=== PATIENT | female | born 1955 | race Caucasian/White ===

== ENCOUNTER 2017-02-14 14:59 | Emergency (ER) | payer MEDICARE, MEDICAID ==
[~2017-02-14] VITALS: Ht 154.9 cm; Wt 58.5 kg
[2017-02-14 15:46] VITALS: BP 144/73
[2017-02-14] MEDS ORDERED: FLUT9.9S NS (16:09)
--- NOTE | 2017-02-14 16:09 | PHYS DOC ---
Past Medical History Past Medical History: High Cholesterol, Other Additional Past Medical Histor: ENDOMETRIOSIS Past Surgical History: Appendectomy, Tonsillectomy, Other Additional Past Surgical Histo: ENDOMETRIOSIS SX x4 Alcohol Use: None Drug Use: None Adult General Chief Complaint Chief Complaint: Congestion HPI HPI Patient is a 61 year old female presents to the emergency department with a history of sinus congestion for the last 2 days. Patient states she has taken Tylenol PM without relief. She denies fever, chills, nausea or vomiting. She states she has had some SOA but nothing more than normal. Patient is concerned as about her symptoms as she is planing on flying to [place] tomorrow. Review of Systems Review of Systems Constitutional: Denies fever or chills [] Eyes: Denies change in visual acuity, redness, or eye pain [] HENT: nasal congestion denies sore throat [] Respiratory: Denies cough or shortness of breath [] Cardiovascular: No additional information not addressed in HPI [] GI: Denies abdominal pain, nausea, vomiting, bloody stools or diarrhea [] : Denies dysuria or hematuria [] Musculoskeletal: Denies back pain or joint pain [] Integument: Denies rash or skin lesions [] Neurologic: Denies headache, focal weakness or sensory changes [] Endocrine: Denies polyuria or polydipsia [] All other systems were reviewed and found to be within normal limits, except as documented in this note. Allergies Allergies Allergies Coded Allergies Type Severity Reaction Last Updated Verified morphine Adverse Reaction Mild VOMITING 02/14/17 Yes Physical Exam Physical Exam Constitutional: Well developed, well nourished, no acute distress, non-toxic appearance. [] HENT: Normocephalic, atraumatic, bilateral external ears normal, oropharynx moist, no oral exudates, nose normal. Bilateral TM normal, patient with frontal and maxillary sinus tenderness noted. Throat with erythema and post nasal drip, no exudate noted. Eyes: PERRLA, EOMI, conjunctiva normal, no discharge. [] Neck: Normal range of motion, no tenderness, supple, no stridor. [] Cardiovascular:Heart rate regular rhythm, no murmur [] Lungs & Thorax: Bilateral breath sounds clear to auscultation [] Skin: Warm, dry, no erythema, no rash. [] Extremities: No tenderness, no cyanosis, no clubbing, ROM intact, no edema. [] Neurologic: Alert and oriented X 3, normal motor function, normal sensory function, no focal deficits noted. [] Psychologic: Affect normal, judgement normal, mood normal. [] Current Patient Data Vital Signs Vital Signs Date Time Temp Pulse Resp B/P (MAP) Pulse Ox O2 Delivery O2 Flow Rate FiO2 02/14/17 15:46 98.6 91 20 97 Room Air 98.6 EKG EKG [] Radiology/Procedures Radiology/Procedures [] Course & Med Decision Making Course & Med Decision Making Pertinent Labs and Imaging studies reviewed. (See chart for details) Patient will be discharged home with recommendations for plenty of fluids. Recommended tylenol or Ibuprofen for fever, chills or generalized body aches. Mucinex DM for congestion and Sudafed to help with the pressure feeling. Recommended flonase. Patient will be discharged home in stable condition. Signs and symptoms to return to the emergency department have been provided. All questions and concerns have been answered at the bedside. Patient will be discharged home in stable condition. [] Dragon Disclaimer Dragon Disclaimer This electronic medical record was generated, in whole or in part, using a voice recognition dictation system. Departure Departure Impression: Primary Impression: URI (upper respiratory infection) Disposition: HOME, SELF-CARE Condition: STABLE Referrals: UNKNOWN PCP NAME (PCP) Patient Instructions: Upper Respiratory Infection, Adult, [id number] Additional Instructions: Activity as tolerated Medication as prescribed Mucinex DM as directed by manufacture Sudafed as directed by manufacture Drink plenty of fluids such as water, propel or gatorade Followup with primary care provider in 5-7 days Return to emergency department as needed for signs and symptoms that become worse. Scripts Fluticasone Propionate (Flonase Allergy Relief) 9.9 Ml [place].susp 2 SPRAYS NS DAILY, #1 BOTTLE Prov: VALERI RUIZ [employer] 02/14/17 Problem Qualifiers Primary Impression: URI (upper respiratory infection) URI type: unspecified URI Qualified Codes: J06.9 - Acute upper respiratory infection, unspecified VALERI RUIZ [employer] Feb 14, 2017 16:09
== END 2017-02-14 16:16 | disposition home or self-care (01) ==
LOC: ER 14:59
DX: J06.9 Acute upper respiratory infection, unspecified (principal); E78.00 Pure hypercholesterolemia, unspecified; Z88.5 Allergy status to narcotic agent
CPT/HCPCS: 99282

== ENCOUNTER 2017-08-29 02:40 | Emergency (ER) | payer OTHER, MEDICAID, MEDICARE ==
[2017-08-29 03:50] LABS: ADD MAN DIFF? NO
[2017-08-29 03:54] LABS: BASO # 0.1 x10^3/uL (0.0-0.2); BASO % 1 % (0-3); BILIRUBIN,URINE NEGATIVE (NEG); CLARITY,URINE CLEAR; COLOR,URINE YELLOW; EOS # 0.2 x10^3/uL (0.0-0.7); EOS % 2 % (0-3); GLUCOSE,URINE NEGATIVE (NEG); HEMATOCRIT 40.6 % (36.0-47.0); HEMOGLOBIN 13.7 g/dL (12.0-15.5); LYMPH # 3.5 x10^3/uL (1.0-4.8); LYMPH % 32 % (24-48); MEAN CORPUSCULAR HEMOGLOBIN 30 pg (25-35); MEAN CORPUSCULAR HGB CONC 34 g/dL (31-37); MEAN CORPUSCULAR VOLUME 89 fL (79-100); MONO # 0.8 x10^3/uL (0.0-1.1); MONO % 8 % (0-9); NEUT # 6.1 x10^3uL (1.8-7.7); NEUT % 57 % (31-73); NITRITE,URINE NEGATIVE (NEG); PH,URINE 6.5; PLATELET COUNT 297 x10^3/uL (140-400); PROTEIN,URINE NEGATIVE (NEG-TRACE); RED BLOOD COUNT 4.56 x10^6/uL (3.50-5.40); RED CELL DISTRIBUTION WIDTH 13.7 % (11.5-14.5); UROBILINOGEN,URINE 0.2 mg/dL (0.2 mg/dL); WHITE BLOOD COUNT 10.8 x10^3/uL (4.0-11.0)
[2017-08-29 04:00] LABS: ANION GAP 6 (6-14); BLOOD UREA NITROGEN 21 mg/dL (7-20); CALCIUM 8.8 mg/dL (8.5-10.1); CARBON DIOXIDE 27 mmol/L (21-32); CHLORIDE 103 mmol/L (98-107); CREATININE 0.8 mg/dL (0.6-1.0); GFR 72.7; GLUCOSE 95 mg/dL (70-99); POTASSIUM 3.8 mmol/L (3.5-5.1); SODIUM 136 mmol/L (136-145)
[2017-08-29 04:12] LABS: BACTERIA,URINE FEW /HPF (0-FEW); RBC,URINE 0 /HPF (0-2); SQUAMOUS EPITHELIAL CELL,UR MOD /LPF; WBC,URINE OCC /HPF (0-4)
[2017-08-29] MEDS: HYDROcodone/APAP 7.5/325MG 1 TAB TABLET PO (04:26)
[2017-08-29] MEDS: KETOROLAC 30 MG/ML INJ. IV (04:27)
[2017-08-29] MEDS: IPRATRPIUM/ALBUTEROL 0.5/2.5MG 3 ML NEBU. NEB (04:32)
== END 2017-08-29 05:35 | disposition home or self-care (01) ==
LOC: ER 02:40
DX: R07.81 Pleurodynia (principal); R07.89 Other chest pain; R05 Cough; R09.81 Nasal congestion; J02.9 Acute pharyngitis, unspecified; M54.6 Pain in thoracic spine; Z90.49 Acquired absence of other specified parts of digestive tract; Z88.5 Allergy status to narcotic agent
CPT/HCPCS: 36415; 71045; 80048; 81001; 85025; 94640; 96374; 99285-25; J1885; J7620

== ENCOUNTER → 2017-11-06 | Outpatient (CLI) | payer OTHER ==
[2017-08-29 04:59] VITALS: BP 153/74
[~2017-11-06] MED LIST: AZIT250T6 PO; CONTRAST GIVEN. MC PRN; FLUT9.9S NS; HYDR-971 PO; IOHEXOL 300 MG/ML 100ML VIAL. IV ONE; PRED50TA PO
--- NOTE | 2017-11-06 11:20 | RAD ---
CT of the chest with contrast, 11/06/2017: HISTORY: Pleuritic chest pain and shortness of breath Multidetector CT imaging was performed following an IV bolus injection of iodinated contrast material. There is opacification of multiple periscapular and chest wall collateral veins in the left upper chest. Opacified left subclavian vein is not visualized. The left innominate vein is widely patent. The findings suggest occlusion of the left subclavian vein medially. The thoracic aorta is of normal caliber. Several scattered coronary artery calcifications are noted. No mediastinal or hilar adenopathy is evident. There is mild bibasilar linear scarring and/or atelectasis, more so on the right. No pulmonary consolidation or mass is seen. There is no evidence of pleural fluid. Mild scattered degenerative changes are present in the spine. IMPRESSION: 1. Minimal coronary artery calcifications. 2. Mild bibasilar linear scarring and/or atelectasis. 3. 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 PQRS Compliance Statement: One or more of the following individualized dose reduction techniques were utilized for this examination: 1. Automated exposure control 2. Adjustment of the mA and/or kV according to patient size 3. Use of iterative reconstruction technique Electronically signed by: Robin Jolly MD (11/06/2017 11:17 AM) [facility]
== END | disposition home or self-care (01) ==
LOC: CT 09:31
PROVIDERS: ATTEND Family Medicine
DX: I25.10 Atherosclerotic heart disease of native coronary artery without angina pectoris (principal); E78.00 Pure hypercholesterolemia, unspecified; Z90.49 Acquired absence of other specified parts of digestive tract; Z88.5 Allergy status to narcotic agent
CPT/HCPCS: 71260; Q9967

== ENCOUNTER → 2018-03-26 | Day surgery (SDC) | payer OTHER ==
[~2018-03-26] MED LIST changes: +ACET325T9 PO; +ALBU2.5V8 NEB; +AMLO5TAB10 PO; +ATOR10TA60 PO; +BUDE10.2 IH; -CONTRAST GIVEN. MC PRN; +CYCL10TA2 PO; +DOXY100C2 PO; +ESCITALOPRAM OX10 MG PO; +FEXO180T16 PO; +FLUT16SP IH; +HYDR-2765 PO; +HYDR-3164 PO; -HYDR-971 PO; +HYDROmorphone 2 MG/ML VIAL IV PRN; -IOHEXOL 300 MG/ML 100ML VIAL. IV ONE; +IV RINGERS,LACTATED 1000ML 1,000 ML IV SCH; +LACT1CAP19 PO; +LIDOCAINE 1% PF 2 ML VIAL. ID PRN; +MELA3TAB2 PO; +MORPHINE SULFATE 4 MG/ML VIAL. IV PRN; +PRED20TA PO; +PROCHLORPERAZINE 10 MG/2 ML VIAL. IV PRN; +PROPOFOL 20 ML IV ONE; +fentaNYL PF VIAL 100 MCG/2 ML VIAL IV PRN
[2018-03-26 09:19] VITALS: BP 123/74
--- NOTE | 2018-03-27 17:11 | PATHOLOGY ---
[facility] Accession Number: [id number] . 01 Material submitted: . RANDOM COLON BIOPSY . 01 Clinical history: . Diarrhea, family HX CRC . 02 Diagnosis: Colonic mucosa, random colon biopsy: - No significant pathologic abnormalities. . (JPM:mm; 03/27/2018) [facility]/03/27/2018 . 02 Comment: Sections of the random colon biopsy reveal multiple segments of colonic mucosa containing several mucosal-associated lymphoid aggregates. There is no evidence of a chronic destructive colitis, lymphocytic colitis, or collagenous colitis. . (JPM:mml; 03/27/2018) . 02 Electronically signed: . Garfield Velasquez MD, Pathologist NPI- [id number] . 01 Gross description: . Received in formalin labeled "Osiris Javed, random colon BX, rule out microscopic colitis," are multiple segments of pathak soft tissue measuring 1.5 x 0.9 x 0.2 cm in aggregate dimensions. The specimen is filtered and entirely submitted in cassette A1. (TSD; 03/26/2018) TOB/TOB . 02 Pathologist provided ICD-10: R19.7 . 02 CPT . 323923 Specimen Comment: A courtesy copy of this report has been sent to Specimen Comment: [phone], . Specimen Comment: Report sent to / DR KRISHNA Specimen Comment: A duplicate report has been generated due to demographic updates. Performed at: 01 [facility] [address], [place] [id number] MD Souleymane Tamayo MD Phone: [phone] Performed at: 02 [facility] [address], [place] [id number] MD Garfield Velasquez MD Phone: [phone]
== END | disposition home or self-care (01) ==
LOC: ENDOS 07:24
PROVIDERS: ATTEND Internal Medicine Gastroenterology
DX: K64.0 First degree hemorrhoids (principal); K52.9 Noninfective gastroenteritis and colitis, unspecified; E78.00 Pure hypercholesterolemia, unspecified; Z88.5 Allergy status to narcotic agent; M19.90 Unspecified osteoarthritis, unspecified site; Z82.49 Family history of ischemic heart disease and other diseases of the circulatory system; Z79.82 Long term (current) use of aspirin; Z79.899 Other long term (current) drug therapy; Z90.49 Acquired absence of other specified parts of digestive tract; Z90.710 Acquired absence of both cervix and uterus; Z98.890 Other specified postprocedural states
CPT/HCPCS: 45380; 88305; J2704

== ENCOUNTER 2018-05-21 15:08 | Inpatient (IN) | payer OTHER ==
[~2018-05-21] VITALS: Ht 154.9 cm; Wt 61.4 kg
[~2018-05-21 15:08] MED LIST changes: -ALBU2.5V8 NEB; -AMLO5TAB10 PO; -BUDE10.2 IH; -CYCL10TA2 PO; -DOXY100C2 PO; -FEXO180T16 PO; -FLUT16SP IH; -HYDR-2765 PO; -HYDROmorphone 2 MG/ML VIAL IV PRN; -IV RINGERS,LACTATED 1000ML 1,000 ML IV SCH; -LACT1CAP19 PO; -LIDOCAINE 1% PF 2 ML VIAL. ID PRN; -MORPHINE SULFATE 4 MG/ML VIAL. IV PRN; -PRED20TA PO; -PROCHLORPERAZINE 10 MG/2 ML VIAL. IV PRN; -PROPOFOL 20 ML IV ONE; -fentaNYL PF VIAL 100 MCG/2 ML VIAL IV PRN
--- NOTE | 2018-05-21 15:51 | PHYS DOC ---
Past Medical History Past Medical History: Arthritis, Endometriosis Additional Past Medical Histor: ENDOMETRIOSIS Past Surgical History: Appendectomy, Tonsillectomy Additional Past Surgical Histo: ENDOMETRIOSIS SX x4 Alcohol Use: None Drug Use: None Adult General Chief Complaint Chief Complaint: SHORTNESS OF BREATH HPI HPI Patient is a 62 year old female who presents with chest pain that is sharp and shooting across her chest bilaterally, mid back pain that is sharp and shooting across her back bilaterally, left shoulder pain that is sharp or though patient states that she does have 50% torn rotator cuff and that shoulder, and shortness of air that all started on Saturday. The patient states that now worse. Patient states that she saw Dr. Knox earlier this week and is having abdominal pain in the right upper quadrant. Patient states she just had a colonoscopy because she's been having diarrhea since and that was normal. Patient denies nausea, vomiting, fever, cough, recent illness. Review of Systems Review of Systems Constitutional: Denies fever or chills [] Eyes: Denies change in visual acuity, redness, or eye pain [] HENT: Denies nasal congestion or sore throat [] Respiratory: Denies cough. + shortness of breath [] Cardiovascular: Left and right shooting pain GI: abdominal pain, denies nausea, vomiting, bloody stools. + Neck diarrhea [] : Urinary frequency Denies dysuria or hematuria [] Musculoskeletal: Bilateral mid back pain or joint pain [] Integument: Denies rash or skin lesions [] Neurologic: Denies headache, focal weakness or sensory changes [] Endocrine: Denies polyuria or polydipsia [] All other systems were reviewed and found to be within normal limits, except as documented in this note. Current Medications Current Medications Current Medications Medications (Trade) Dose Ordered Sig/Jonatan Start Time Stop Time Status Last Admin Dose Admin Acetaminophen (Tylenol) 650 mg PRN Q4HRS PRN 05/21/18 18:15 05/22/18 18:14 Aspirin (Children'S Aspirin) 324 mg 1X ONCE 05/21/18 16:00 05/21/18 16:01 DC 05/21/18 16:17 324 MG Fentanyl Citrate (Fentanyl 2ml Vial) 50 mcg PRN Q1HR PRN 05/21/18 18:15 05/22/18 18:14 Info (CONTRAST GIVEN -- Rx MONITORING) 1 each PRN DAILY PRN 05/21/18 16:45 05/23/18 16:44 Iohexol (Omnipaque 300 Mg/ml) 75 ml 1X ONCE 05/21/18 16:30 05/21/18 16:31 DC 05/21/18 16:48 75 ML Multi-Ingredient Mouthwash/Gargle (Gi Cocktail) 20 ml 1X ONCE 05/21/18 18:15 05/21/18 18:17 DC Nitroglycerin (Nitrostat) 0.4 mg PRN Q5MIN PRN 05/21/18 18:15 05/22/18 18:14 Ondansetron HCl (Zofran) 4 mg PRN Q8HRS PRN 05/21/18 18:15 05/22/18 18:14 Sodium Chloride 1,000 ml @ 1,000 mls/hr Q1H 05/21/18 15:52 05/21/18 16:51 DC 05/21/18 16:21 1,000 MLS/HR Allergies Allergies Allergies Coded Allergies Type Severity Reaction Last Updated Verified morphine Adverse Reaction Mild VOMITING 03/26/18 Yes Physical Exam Physical Exam Constitutional: Well developed, well nourished, no acute distress, non-toxic appearance. [] HENT: Normocephalic, atraumatic, bilateral external ears normal, oropharynx moist, no oral exudates, nose normal. [] Eyes: PERRLA, EOMI, conjunctiva normal, no discharge. [] Neck: Normal range of motion, no tenderness, supple, no stridor. [] Cardiovascular:Heart rate regular rhythm, no murmur [] Lungs & Thorax: Bilateral upper breath sounds clear to auscultation and lower bilateral breath sounds are diminished.[] Abdomen: Bowel sounds normal, soft, Upper right, epigastric, upper left tenderness, no masses, no pulsatile masses. [] Skin: Warm, dry, no erythema, no rash. [] Back: No tenderness, no CVA tenderness. [] Extremities: No tenderness, no cyanosis, no clubbing, ROM intact, no edema. [] Neurologic: Alert and oriented X 3, normal motor function, normal sensory function, no focal deficits noted. [] Psychologic: Affect normal, judgement normal, mood normal. [] Current Patient Data Vital Signs Vital Signs Date Time Temp Pulse Resp B/P (MAP) Pulse Ox O2 Delivery O2 Flow Rate FiO2 05/21/18 18:46 18 96 Room Air 05/21/18 15:20 98.3 90 142/83 (102) 98.3 Lab Values Laboratory Tests Test 05/21/18 15:20 05/21/18 16:05 Urine Collection Type Unknown Urine Color Yellow Urine Clarity Clear Urine pH 5.5 Urine Specific [place] 1.010 Urine Protein Negative mg/dL (NEG-TRACE) Urine Glucose (UA) Negative mg/dL (NEG) Urine Ketones (Stick) Negative mg/dL (NEG) Urine Blood Negative (NEG) Urine Nitrite Negative (NEG) Urine Bilirubin Negative (NEG) Urine Urobilinogen Dipstick 0.2 mg/dL (0.2 mg/dL) Urine Leukocyte Esterase Negative (NEG) Urine RBC 0 /HPF (0-2) Urine WBC Rare /HPF (0-4) Urine Squamous Epithelial Cells Few /LPF Urine Bacteria Few /HPF (0-FEW) Urine Opiates Screen Neg (NEG) Urine Methadone Screen Neg (NEG) Urine Barbiturates Neg (NEG) Urine Phencyclidine Screen Neg (NEG) Urine Amphetamine/Methamphetamine Neg (NEG) Urine Benzodiazepines Screen Neg (NEG) Urine Cocaine Screen Neg (NEG) Urine Cannabinoids Screen Pos (NEG) Urine Ethyl Alcohol Neg (NEG) White Blood Count 13.0 x10^3/uL (4.0-11.0) H Red Blood Count 4.34 x10^6/uL (3.50-5.40) Hemoglobin 12.8 g/dL (12.0-15.5) Hematocrit 39.5 % (36.0-47.0) Mean Corpuscular Volume 91 fL (79-100) Mean Corpuscular Hemoglobin 29 pg (25-35) Mean Corpuscular Hemoglobin Concent 32 g/dL (31-37) Red Cell Distribution Width 13.6 % (11.5-14.5) Platelet Count 300 x10^3/uL (140-400) Neutrophils (%) (Auto) 71 % (31-73) Lymphocytes (%) (Auto) 17 % (24-48) L Monocytes (%) (Auto) 10 % (0-9) H Eosinophils (%) (Auto) 1 % (0-3) Basophils (%) (Auto) 1 % (0-3) Neutrophils # (Auto) 9.2 x10^3uL (1.8-7.7) H Lymphocytes # (Auto) 2.2 x10^3/uL (1.0-4.8) Monocytes # (Auto) 1.3 x10^3/uL (0.0-1.1) H Eosinophils # (Auto) 0.1 x10^3/uL (0.0-0.7) Basophils # (Auto) 0.1 x10^3/uL (0.0-0.2) D-Dimer (Ruth) 0.52 ug/mlFEU (0.00-0.50) H Sodium Level 137 mmol/L (136-145) Potassium Level 3.9 mmol/L (3.5-5.1) Chloride Level 101 mmol/L (98-107) Carbon Dioxide Level 28 mmol/L (21-32) Anion Gap 8 (6-14) Blood Urea Nitrogen 15 mg/dL (7-20) Creatinine 0.7 mg/dL (0.6-1.0) Estimated GFR (Cockcroft-Gault) 84.5 BUN/Creatinine Ratio 21 (6-20) H Glucose Level 99 mg/dL (70-99) Calcium Level 8.9 mg/dL (8.5-10.1) Total Bilirubin 0.4 mg/dL (0.2-1.0) Aspartate Amino Transferase (AST) 21 U/L (15-37) Alanine Aminotransferase (ALT) 31 U/L (14-59) Alkaline Phosphatase 83 U/L (46-116) Troponin I Quantitative < 0.017 ng/mL (0.000-0.055) Total Protein 7.4 g/dL (6.4-8.2) Albumin 3.5 g/dL (3.4-5.0) Albumin/Globulin Ratio 0.9 (1.0-1.7) L Lipase 222 U/L (73-393) Laboratory Tests 05/21/18 16:05 Laboratory Tests 05/21/18 16:05 EKG EKG Sinus Rhythm and no STEMI Interpretation Time: [address] Cr Radiology/Procedures Radiology/Procedures [] Impressions: [facility] [address] [place], [place] [id number] IMAGING REPORT Signed PATIENT: JULIA MRAR ACCOUNT: [id number] : 1955 LOCATION: ER AGE: 62 SEX: F EXAM STATUS: REG ER ORD. PHYSICIAN: VALERI DILL APRN REASON: chest pain PROCEDURE: CHEST PA & LATERAL CHEST PA LATERAL History: ER PATIENT. ATRAUMATIC CHEST PAIN X3 DAYS. WORSENING TODAY. PAIN UPON INSPIRATION. Hx COPD. Comparison: AP chest August 29, 2017. Findings: The cardiomediastinal silhouette is normal. Pulmonary vasculature is normal. Minimal discoid atelectasis in the bilateral lung bases. The lungs are otherwise clear. No pleural effusion or pneumothorax is seen. There is no acute bone abnormality. IMPRESSION: No acute cardiopulmonary process. Electronically signed by: Hudson Leonardo MD (05/21/2018 4:28 PM) [id number] DICTATED and SIGNED BY: HUDSON LEONARDO MD DATE: 05/21/18 1628 [facility] [address] [place] [address] IMAGING REPORT Signed PATIENT: JULIA MARR ACCOUNT: [id number] : 1955 LOCATION: ER AGE: 62 SEX: F EXAM STATUS: REG ER ORD. PHYSICIAN: VALERI DILL APRN REASON: RUQ Pain, DIARRHEA PROCEDURE: CT ABD PELV W/ IV CONTRST ONLY EXAM: CT Abdomen and Pelvis with IV contrast CLINICAL HISTORY: Right upper quadrant pain, back pain, diarrhea COMPARISON: none TECHNIQUE: Helical CT of the abdomen and pelvis was performed following the administration of intravenous contrast. Axial, coronal and sagittal reformatted images were generated. PQRS compliance statement - One or more of the following individualized dose reduction techniques were utilized for this study: 1. Automated exposure control 2. Adjustment of the mA and/or kV according to patient size 3. Use of iterative reconstruction technique FINDINGS: Lower chest: Linear opacities in the lower lobes likely scarring/atelectasis. Abdomen and Pelvis: No focal liver lesion. Gallbladder is normal. No biliary ductal dilatation. Spleen is unremarkable. Adrenal glands are normal. Pancreas is unremarkable. Symmetric nephrograms. No focal renal lesion. No hydronephrosis. Moderate colonic stool content is seen throughout the colon. The appendix is not definitively seen. No small or large bowel dilatation to suggest bowel obstruction. Anastomotic suture line is seen in the right lower quadrant. Mild thickening of the bladder wall. Aorta is normal in caliber with atherosclerotic calcifications. No abdominal or pelvic ascites. No abdominal pelvic lymphadenopathy. Bones: Multilevel degenerative changes of the spine are seen. Bilateral L5 pars defects are seen. No spondylolisthesis. Decreased bone mineral density. IMPRESSION: 1. No evidence for acute cholecystitis. 2. Pancreas is normal without evidence for acute pancreatitis. 3. Moderate colonic stool content is seen. No bowel obstruction. 4. Mild bladder wall thickening, nonspecific possibly cystitis or physiologic for this patient. Electronically signed by: Prateek Sanches MD (05/21/2018 5:17 PM) [facility] DICTATED and SIGNED BY: PRATEEK SANCHES MD DATE: 05/21/18 687 Course & Med Decision Making Course & Med Decision Making Patient is a 62 year old female who presents with chest pain that is sharp and shooting across her chest bilaterally, mid back pain that is sharp and shooting across her back bilaterally, left shoulder pain that is sharp or though patient states that she does have 50% torn rotator cuff and that shoulder, and shortness of air that all started on Saturday. The patient states that now worse. Patient states that she saw Dr. Knox earlier this week and is having abdominal pain in the right upper quadrant. Patient states she just had a colonoscopy because she's been having diarrhea since and that was normal. Patient denies nausea, vomiting, fever, cough, recent illness. No extremity swelling. Speaks in full clear sentences. PERRLA. Neurologically intact. Upper Right, epigastric, left abdomen upper abdomen tenderness to palpation. Patient states that on Saturday she began also having urinary frequency but no burning with urination and no blood in her urine. Patient denies any blood in her stool. Abdomen is soft and there are no masses felt. Vital signs are within normal limits she is afebrile. Alert and oriented. Skin is pink warm and dry. Mucous membranes are moist. EKG shows sinus rhythm and no STEMI. No CVA tenderness. X-ray shows no acute findings. Urinalysis shows no infection. Blood work is unremarkable. Her lipase is 222 which is the upper limit of normal. Heart score 3. CT ABD PELV shows 1. No evidence for acute cholecystitis. 2. Pancreas is normal without evidence for acute pancreatitis. 3. Moderate colonic stool content is seen. No bowel obstruction. 4. Mild bladder wall thickening, nonspecific possibly cystitis or physiologic for this patient. After have given Fentanyl patient states she is still feeling chest pain and states she just feels like she can't get a deep breath. I added on a d-dimer and ordered another dose of fentanyl. 1810: I have spoken to Dr. Ennis for admission. He states also try giving the patient a GI cocktail. Patient be admitted the hospital for chest pain and I will consult cardiology. 1999: ddimer elevated. I have ordered a CT Angio Chest Dragon Disclaimer Dragon Disclaimer This electronic medical record was generated, in whole or in part, using a voice recognition dictation system. Departure Departure Impression: Primary Impression: Chest pain Disposition: ADMITTED INPATIENT Admitting Physician: Cm Ennis Condition: STABLE Referrals: JARRELL KRISHNA MD (PCP) Problem Qualifiers Primary Impression: Chest pain Chest pain type: unspecified Qualified Codes: R07.9 - Chest pain, unspecified VALERI DILL MEDICAL TECHNOLOGIST GENERALIST May 21, 2018 15:51
[2018-05-21] MEDS ORDERED: IV NORMAL SALINE 1000ML BAG 1,000 ML IV SCH (15:52)
[2018-05-21] MEDS ORDERED: ONDANSETRON PF 4 MG/2 ML VIAL. IV ONE (16:00)
[2018-05-21] MEDS ORDERED: ASPIRIN CHEWABLE 81 MG TABLET. PO ONE (16:00)
[2018-05-21] MEDS ORDERED: fentaNYL PF VIAL 100 MCG/2 ML VIAL IV ONE ×2 (16:00→18:15)
--- NOTE | 2018-05-21 16:04 | EKG ---
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
[2018-05-21 16:14] LABS: BASO # 0.1 x10^3/uL (0.0-0.2); BASO % 1 % (0-3); EOS # 0.1 x10^3/uL (0.0-0.7); EOS % 1 % (0-3); HEMATOCRIT 39.5 % (36.0-47.0); HEMOGLOBIN 12.8 g/dL (12.0-15.5); LYMPH # 2.2 x10^3/uL (1.0-4.8); LYMPH % 17 % (24-48); MEAN CORPUSCULAR HEMOGLOBIN 29 pg (25-35); MEAN CORPUSCULAR HGB CONC 32 g/dL (31-37); MEAN CORPUSCULAR VOLUME 91 fL (79-100); MONO # 1.3 x10^3/uL (0.0-1.1); MONO % 10 % (0-9); NEUT # 9.2 x10^3uL (1.8-7.7); NEUT % 71 % (31-73); PLATELET COUNT 300 x10^3/uL (140-400); RED BLOOD COUNT 4.34 x10^6/uL (3.50-5.40); RED CELL DISTRIBUTION WIDTH 13.6 % (11.5-14.5)
[2018-05-21 16:16] LABS: BILIRUBIN,URINE NEGATIVE (NEG); CLARITY,URINE CLEAR; COLOR,URINE YELLOW; NITRITE,URINE NEGATIVE (NEG); PH,URINE 5.5; PROTEIN,URINE NEGATIVE (NEG-TRACE); UROBILINOGEN,URINE 0.2 mg/dL (0.2 mg/dL)
[2018-05-21 16:23] LABS: CALCIUM 8.9 mg/dL (8.5-10.1); CREATININE 0.7 mg/dL (0.6-1.0); GFR 84.5; POTASSIUM 3.9 mmol/L (3.5-5.1)
[2018-05-21 16:26] LABS: AMPHETAMINE/METHAMPHETAMINE NEG (NEG); BARBITURATES NEG (NEG); BENZODIAZEPINES NEG (NEG); CANNABINOIDS POS (NEG); COCAINE NEG (NEG); METHADONE NEG (NEG); OPIATES NEG (NEG); PHENCYCLIDINE NEG (NEG)
[2018-05-21 16:29] LABS: ALBUMIN 3.5 g/dL (3.4-5.0); ALBUMIN/GLOBULIN RATIO 0.9 (1.0-1.7); TOTAL BILIRUBIN 0.4 mg/dL (0.2-1.0); TOTAL PROTEIN 7.4 g/dL (6.4-8.2)
[2018-05-21] MEDS ORDERED: IOHEXOL 300 MG/ML 100ML VIAL. IV ONE (16:30)
--- NOTE | 2018-05-21 16:31 | RAD ---
CHEST PA LATERAL History: ER PATIENT. ATRAUMATIC CHEST PAIN X3 DAYS. WORSENING TODAY. PAIN UPON INSPIRATION. Hx COPD. Comparison: AP chest August 29, 2017. Findings: The cardiomediastinal silhouette is normal. Pulmonary vasculature is normal. Minimal discoid atelectasis in the bilateral lung bases. The lungs are otherwise clear. No pleural effusion or pneumothorax is seen. There is no acute bone abnormality. IMPRESSION: No acute cardiopulmonary process. Electronically signed by: Hudson Leonardo MD (05/21/2018 4:28 PM) [id number]
[2018-05-21 16:32] LABS: BACTERIA,URINE FEW /HPF (0-FEW); RBC,URINE 0 /HPF (0-2); SQUAMOUS EPITHELIAL CELL,UR FEW /LPF; WBC,URINE RARE /HPF (0-4)
[2018-05-21] MEDS ORDERED: CONTRAST GIVEN. MC PRN (16:45)
--- NOTE | 2018-05-21 17:20 | RAD ---
EXAM: CT Abdomen and Pelvis with IV contrast CLINICAL HISTORY: Right upper quadrant pain, back pain, diarrhea COMPARISON: none TECHNIQUE: Helical CT of the abdomen and pelvis was performed following the administration of intravenous contrast. Axial, coronal and sagittal reformatted images were generated. PQRS compliance statement - One or more of the following individualized dose reduction techniques were utilized for this study: 1. Automated exposure control 2. Adjustment of the mA and/or kV according to patient size 3. Use of iterative reconstruction technique FINDINGS: Lower chest: Linear opacities in the lower lobes likely scarring/atelectasis. Abdomen and Pelvis: No focal liver lesion. Gallbladder is normal. No biliary ductal dilatation. Spleen is unremarkable. Adrenal glands are normal. Pancreas is unremarkable. Symmetric nephrograms. No focal renal lesion. No hydronephrosis. Moderate colonic stool content is seen throughout the colon. The appendix is not definitively seen. No small or large bowel dilatation to suggest bowel obstruction. Anastomotic suture line is seen in the right lower quadrant. Mild thickening of the bladder wall. Aorta is normal in caliber with atherosclerotic calcifications. No abdominal or pelvic ascites. No abdominal pelvic lymphadenopathy. Bones: Multilevel degenerative changes of the spine are seen. Bilateral L5 pars defects are seen. No spondylolisthesis. Decreased bone mineral density. IMPRESSION: 1. No evidence for acute cholecystitis. 2. Pancreas is normal without evidence for acute pancreatitis. 3. Moderate colonic stool content is seen. No bowel obstruction. 4. Mild bladder wall thickening, nonspecific possibly cystitis or physiologic for this patient. Electronically signed by: Prateek Downing MD (05/21/2018 5:17 PM) [facility]
[2018-05-21] MEDS ORDERED: LIDO:MAALOX 1:1 20 ML SINGLE DOSE. SWSW ONE (18:15)
[2018-05-21] MEDS ORDERED: ACETAMINOPHEN 325 MG TABLET. PO PRN (18:15)
[2018-05-21] MEDS ORDERED: ONDANSETRON PF 4 MG/2 ML VIAL. IV PRN (18:15)
[2018-05-21] MEDS ORDERED: NITROGLYCERIN SUBLINGUAL 0.4 MG BOTTLE OF 25. SL PRN (18:15)
[2018-05-21 23:00] VITALS: BP 148/84
[2018-05-21] MEDS: fentaNYL PF VIAL 100 MCG/2 ML VIAL IV PRN (23:12)
--- NOTE | 2018-05-21 23:34 | RAD ---
Lung scan 05/21/2018 CLINICAL HISTORY: Elevated d-dimer. TECHNIQUE: After the administration of 18 mCi of xenon-133 gas, ventilation images of both lungs were obtained using the gamma camera. After the intravenous administration of 5.5 mCi of Technetium 99m MAA, perfusion images of both lungs were obtained using the gamma camera. FINDINGS: Comparison is made to PA and lateral chest radiographs performed earlier today. These demonstrate no acute pulmonary infiltrate. Slightly heterogeneous ventilation and perfusion of both lungs is seen. No unmatched perfusion defect is noted. These findings are consistent with a low probability study for pulmonary embolism. IMPRESSION: Low probability study. Electronically signed by: Jose Baez MD (05/21/2018 11:31 PM) [facility]
[2018-05-21] MEDS ORDERED: FLUT16SP IH (23:44)
[2018-05-21] MEDS ORDERED: BUDE10.2 IH (23:44)
[2018-05-21] MEDS ORDERED: FEXO180T16 PO (23:44)
[2018-05-22] MEDS: fentaNYL PF VIAL 100 MCG/2 ML VIAL IV PRN ×4 (02:03→10:59)
--- NOTE | 2018-05-22 02:04 | NUR ---
Patient arrived on unit at 2300. VS obtained and stable, assessment completed. Patient oriented to surroundings, call light within reach. Will resume care and continue to monitor patient.
[2018-05-22 02:55] VITALS: BP 159/87
[2018-05-22 07:37] VITALS: BP 140/79
[2018-05-22] MEDS ORDERED: ALBUTEROL SULFATE 2.5 MG/3 ML NEBU. NEB SCH (08:00)
[2018-05-22] MEDS ORDERED: ALBUTEROL SULFATE 2.5 MG/3 ML NEBU. NEB PRN (08:00)
[2018-05-22] MEDS ORDERED: NON FORMULARY ITEM (Budesonide/Formoterol Fumarate (Symbicort 160-4.5 Mcg Inhaler) 10.2 GM IH SCH (09:00)
--- NOTE | 2018-05-22 10:05 | PDOC2 ---
DL RENTERIA CLIENT RELATIONSHIP CONSULTANT 05/22/18 1005: CARDIAC CONSULT DATE OF CONSULT Date of Consult DATE: 05/22/18 TIME: 09:31 REASON FOR CONSULT Reason for Consult: Chest pain REFERRING PHYSICIAN Referring Physician: Jacky SOURCE Source: Chart review, Patient HISTORY OF PRESENT ILLNESS HISTORY OF PRESENT ILLNESS This is a 62 yo female admitted for complains of chest pain and abdominal pain. Reports that she has chronic cough and has COPD. Has been fever inpt but none at home. She has "50%" torn right RTC which currently ROM is limited and also could not take a deep breath due to the pain to his anterior chest which radiates to lower rib cage. in the back. She also has epigastric to RUQ pain both of these region including chest are sharp in consistency and reproducible with palpation. Her chest pain is more to right and also duplicated with positional changes. No recent moving of furnitures, heavy lifting. No falls or any recent injury. She has had stress test last yr in [place] before moving to and it was normal accdg to her. Denies any past CAD, VTE, arrhythmia. She alos has hx of reflex sympathetic dystrophy. No nausea, vomiting diarrhea, nasal congestion, palpitations. No SOA nor RILEY or exertional CP prior to this starting last Saturday. No paresthesia to UE. PAST MEDICAL HISTORY Cardiovascular: Hyperlipidemia Pulmonary: COPD CENTRAL NERVOUS SYSTEM: Other (Reflex sympathetic dystrophy) Heme/Onc: No pertinent hx Hepatobiliary: No pertinent hx Psych: Depression Musculoskeletal: Osteoarthritis Rheumatologic: No pertinent hx Infectious disease: No pertinent hx ENT: Allergic Rhinitis Renal/: No pertinent hx Endocrine: No pertinent hx Dermatology: No pertinent hx PAST SURGICAL HISTORY Past Surgical History: Appendectomy, Tonsillectomy, Hysterectomy (with BSO) FAMILY HISTORY Family History: Coronary Artery Disease (father) SOCIAL HISTORY Smoke: Quit ALCOHOL: none Drugs: Marijuana (CBD) Lives: with Family CURRENT MEDICATIONS CURRENT MEDICATIONS Current Medications Medications (Trade) Dose Ordered Sig/Jonatan Route PRN Reason Start Time Stop Time Status Last Admin Dose Admin Aspirin (Children'S Aspirin) 324 mg 1X ONCE PO 05/21/18 16:00 05/21/18 16:01 DC 05/21/18 16:17 Sodium Chloride 1,000 ml @ 1,000 mls/hr Q1H IV 05/21/18 15:52 05/21/18 16:51 DC 05/21/18 16:21 Ondansetron HCl (Zofran) 4 mg 1X ONCE IV 05/21/18 16:00 05/21/18 16:01 DC 05/21/18 16:18 Fentanyl Citrate (Fentanyl 2ml Vial) 50 mcg 1X ONCE IV 05/21/18 16:00 05/21/18 16:01 DC 05/21/18 16:20 Iohexol (Omnipaque 300 Mg/ml) 75 ml 1X ONCE IV 05/21/18 16:30 05/21/18 16:31 DC 05/21/18 16:48 Fentanyl Citrate (Fentanyl 2ml Vial) 50 mcg 1X ONCE IV 05/21/18 18:15 05/21/18 18:16 DC 05/21/18 18:46 Multi-Ingredient Mouthwash/Gargle (Gi Cocktail) 20 ml 1X ONCE SWSW 05/21/18 18:15 05/21/18 18:17 DC 05/21/18 21:20 Ondansetron HCl (Zofran) 4 mg PRN Q8HRS PRN IV NAUSEA/VOMITING 05/21/18 18:15 05/22/18 18:14 05/22/18 05:15 Fentanyl Citrate (Fentanyl 2ml Vial) 50 mcg PRN Q1HR PRN IV PAIN 05/21/18 18:15 05/22/18 18:14 05/22/18 08:15 ALLERGIES ALLERGIES: Coded Allergies: morphine (Verified Adverse Reaction, Mild, VOMITING, 03/26/18) ROS Review of System 14 point ROS evaluated with pertinent positives noted per HPI PHYSICAL EXAM General: Alert, Oriented X3, Cooperative, No acute distress HEENT: Atraumatic, Mucous membr. moist/pink Lungs: Clear to auscultation, Normal air movement Heart: Regular rate (SR/ST), Normal S1, Normal S2, Other (2/6 systolic murmur to LLS border) Abdomen: Soft, Other (epigastric and RUQ tenderness with palpation) Extremities: No cyanosis, No edema Skin: No breakdown, No significant lesion Neuro: Normal speech, Sensation intact Psych/Mental Status: Mental status NL, Mood NL MUSCULOSKELETAL: Osteoarthritic changes both hands VITALS VITALS Vital Signs Date Time Temp Pulse Resp B/P (MAP) Pulse Ox O2 Delivery O2 Flow Rate FiO2 05/22/18 08:15 93 Room Air 05/22/18 07:37 99.9 103 17 140/79 (99) 99.9 LABS Lab: Laboratory Tests Test 05/21/18 15:20 05/21/18 16:05 05/21/18 21:05 Urine Collection Type Unknown Urine Color Yellow Urine Clarity Clear Urine pH 5.5 Urine Specific Patton 1.010 Urine Protein Negative mg/dL (NEG-TRACE) Urine Glucose (UA) Negative mg/dL (NEG) Urine Ketones (Stick) Negative mg/dL (NEG) Urine Blood Negative (NEG) Urine Nitrite Negative (NEG) Urine Bilirubin Negative (NEG) Urine Urobilinogen Dipstick 0.2 mg/dL (0.2 mg/dL) Urine Leukocyte Esterase Negative (NEG) Urine RBC 0 /HPF (0-2) Urine WBC Rare /HPF (0-4) Urine Squamous Epithelial Cells Few /LPF Urine Bacteria Few /HPF (0-FEW) Urine Opiates Screen Neg (NEG) Urine Methadone Screen Neg (NEG) Urine Barbiturates Neg (NEG) Urine Phencyclidine Screen Neg (NEG) Urine Amphetamine/Methamphetamine Neg (NEG) Urine Benzodiazepines Screen Neg (NEG) Urine Cocaine Screen Neg (NEG) Urine Cannabinoids Screen Pos (NEG) Urine Ethyl Alcohol Neg (NEG) White Blood Count 13.0 x10^3/uL (4.0-11.0) Red Blood Count 4.34 x10^6/uL (3.50-5.40) Hemoglobin 12.8 g/dL (12.0-15.5) Hematocrit 39.5 % (36.0-47.0) Mean Corpuscular Volume 91 fL (79-100) Mean Corpuscular Hemoglobin 29 pg (25-35) Mean Corpuscular Hemoglobin Concent 32 g/dL (31-37) Red Cell Distribution Width 13.6 % (11.5-14.5) Platelet Count 300 x10^3/uL (140-400) Neutrophils (%) (Auto) 71 % (31-73) Lymphocytes (%) (Auto) 17 % (24-48) Monocytes (%) (Auto) 10 % (0-9) Eosinophils (%) (Auto) 1 % (0-3) Basophils (%) (Auto) 1 % (0-3) Neutrophils # (Auto) 9.2 x10^3uL (1.8-7.7) Lymphocytes # (Auto) 2.2 x10^3/uL (1.0-4.8) Monocytes # (Auto) 1.3 x10^3/uL (0.0-1.1) Eosinophils # (Auto) 0.1 x10^3/uL (0.0-0.7) Basophils # (Auto) 0.1 x10^3/uL (0.0-0.2) D-Dimer (Ruth) 0.52 ug/mlFEU (0.00-0.50) Sodium Level 137 mmol/L (136-145) Potassium Level 3.9 mmol/L (3.5-5.1) Chloride Level 101 mmol/L (98-107) Carbon Dioxide Level 28 mmol/L (21-32) Anion Gap 8 (6-14) Blood Urea Nitrogen 15 mg/dL (7-20) Creatinine 0.7 mg/dL (0.6-1.0) Estimated GFR (Cockcroft-Gault) 84.5 BUN/Creatinine Ratio 21 (6-20) Glucose Level 99 mg/dL (70-99) Calcium Level 8.9 mg/dL (8.5-10.1) Total Bilirubin 0.4 mg/dL (0.2-1.0) Aspartate Amino Transf (AST/SGOT) 21 U/L (15-37) Alanine Aminotransferase (ALT/SGPT) 31 U/L (14-59) Alkaline Phosphatase 83 U/L (46-116) Troponin I Quantitative < 0.017 ng/mL (0.000-0.055) < 0.017 ng/mL (0.000-0.055) Total Protein 7.4 g/dL (6.4-8.2) Albumin 3.5 g/dL (3.4-5.0) Albumin/Globulin Ratio 0.9 (1.0-1.7) Lipase 222 U/L (73-393) IMAGES IMAGES IMPRESSION: 1. Minimal coronary artery calcifications. 2. Mild bibasilar linear scarring and/or atelectasis. 3. 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 PQRS Compliance Statement: One or more of the following individualized dose reduction techniques were utilized for this examination: 1. Automated exposure control 2. Adjustment of the mA and/or kV according to patient size 3. Use of iterative reconstruction technique DATE: 11/06/17 1106 ASSESSMENT/PLAN ASSESSMENT/PLAN 1. Atypical chest pain: noncardiac. MSK 2. Abdominal pain: CT inconclusiveso far except for below 3. Fever with cystitis? 4. COPD/cough 5. HLP 6. Known right RTC tear and reflex sympathetic dystrophy: uses CBD for pain 7. Reactive sinus tach Recommendations 1. CT chest no contrast and note any occult/shoulder-rib fractures and any thoracic compression 2. Rapid flu test 3. TSH, lipids, TTE 4. Past CT revealed coronary calcifications, reported nml stress test a yr ago from [place]. Supportive care at this time. Continue statin 5. Start on ECASA 81 mg if there is no suspicion of PUD. CONCEPCION ALCANTARA MD 05/22/188: CARDIAC CONSULT ASSESSMENT/PLAN ASSESSMENT/PLAN Patient seen and examined. Agree with ECONOMIC RESEARCH ANALYST's assessment and plan. CP with atypical features and most probably musculoskeletal [place] ruled out 2D echo showed normal LV function without any WMA Stress test one year ago apparently normal No further cardiac workup is indicated at this time Thank you for your consultation DL RENTERIA APRN May 22, 2018 10:05 CONCEPCION ALCANTARA MD May 22, 2018 21:08
[2018-05-22] MEDS: CETIRIZINE HCL 10 MG TABLET. PO SCH (10:15)
[2018-05-22] MEDS: FLUTICASONE 50MCG/NASAL SPRAY 16GM BOTTLE. NS SCH (10:15)
[2018-05-22] MEDS: CITALOPRAM 20 MG TABLET. PO SCH (10:16)
[2018-05-22 10:49] VITALS: BP 184/96
[2018-05-22] MEDS: ALBUTEROL SULFATE 2.5 MG/3 ML NEBU. NEB SCH ×4 (10:52→20:41)
[2018-05-22] MEDS: BUDESONIDE 0.5 MG/2 ML NEBU. NEB SCH ×2 (10:52→20:43)
--- NOTE | 2018-05-22 10:52 | RAD ---
EXAM: Abdomen sonogram. HISTORY: Pain. TECHNIQUE: Sonographic imaging of the abdomen was performed. COMPARISON: CT obtained one day prior. FINDINGS: The liver is normal in size. No focal hepatic lesion is seen. The gallbladder is distended. The collar wall remains within normal limits in thickness. The common bile duct is normal in caliber. The left kidney is partially obscured due to bowel gas. The kidneys are otherwise unremarkable. The pancreas and spleen are unremarkable. There is aortic atherosclerosis. IMPRESSION: 1. Distended gallbladder. This can be due to a preprandial patient status. There is no clear gallbladder wall thickening to suggest cholecystitis. 2. Partially obscured left kidney due to bowel gas. 3. Otherwise, relatively unremarkable abdomen sonogram. Electronically signed by: Hali Mario MD (05/22/2018 10:49 AM) [facility]
[2018-05-22 10:53] LABS: INFLUENZA A PATIENT NEGATIVE (NEGATIVE); INFLUENZA B PATIENT NEGATIVE (NEGATIVE)
[2018-05-22 11:03] LABS: BASO # 0.1 x10^3/uL (0.0-0.2); BASO % 1 % (0-3); EOS % 0 % (0-3); HEMATOCRIT 40.4 % (36.0-47.0); HEMOGLOBIN 13.4 g/dL (12.0-15.5); LYMPH # 1.4 x10^3/uL (1.0-4.8); LYMPH % 13 % (24-48); MEAN CORPUSCULAR HEMOGLOBIN 30 pg (25-35); MEAN CORPUSCULAR HGB CONC 33 g/dL (31-37); MEAN CORPUSCULAR VOLUME 91 fL (79-100); MONO # 1.1 x10^3/uL (0.0-1.1); MONO % 11 % (0-9); NEUT # 7.7 x10^3uL (1.8-7.7); NEUT % 75 % (31-73); PLATELET COUNT 279 x10^3/uL (140-400); RED BLOOD COUNT 4.43 x10^6/uL (3.50-5.40); RED CELL DISTRIBUTION WIDTH 13.8 % (11.5-14.5); WHITE BLOOD COUNT 10.3 x10^3/uL (4.0-11.0)
[2018-05-22 11:24] LABS: CREATININE 0.6 mg/dL (0.6-1.0)
[2018-05-22 11:34] LABS: CHOLESTEROL/HDL RATIO 2.3
--- NOTE | 2018-05-22 13:08 | CARD ---
MR#: [id number] Date of Study: 05/22/2018 Ordering Physician: DL RENTERIA, Referring Physician: AKHIL BRIONES Tech: Sola Morales ABEBE APPROVED REPORT EXAM: Two-dimensional and M-mode echocardiogram with Doppler and color Doppler. Other Information Quality : Technically LimitedHR: 115bpm INDICATION Chest Pain 2D DIMENSIONS RVDd2.7 (2.9-3.5cm)Left Atrium(2D)2.4 (1.6-4.0cm) IVSd0.9 (0.7-1.1cm)Aortic Root(2D)2.8 (2.0-3.7cm) LVDd4.8 (3.9-5.9cm)LVOT Diameter2.0 (1.8-2.4cm) PWd1.1 (0.7-1.1cm)LVDs2.8 (2.5-4.0cm) FS (%) 42.5 %SV78.7 ml LVEF(%)73.5 (>50%) Aortic Valve AoV Peak Lionel.165.4cm/sAoV VTI27.5cm AO Peak GR.10.9mmHgLVOT Peak Lionel.151.9cm/s AO Mean GR.7mmHgAVA (VMAX)2.81cm2 BLADIMIR (VTI)2.80cm2 Mitral Valve MV E Rrxzjxlt27.3cm/sMV E Peak Gr.5mmHg MV DECEL VWBJ34ldAT A Zlbngbdr734.0cm/s MV E Mean Gr.3mmHgE/A Ratio0.7 Pulmonary Valve PV Peak Uyxpnutb73.2cm/s Tricuspid Valve TR P. Rflnwhrm763ei/sRAP WCSKIHRH7tbXp TR Peak Gr.10pqHnJWIN10hlNc LEFT VENTRICLE The left ventricle is normal size. There is normal left ventricular wall thickness. The left ventricl e is hyperdynamic. The Ejection Fraction is >70%. There is normal LV segmental wall motion. Transmitr al Doppler flow pattern is Grade I-abnormal relaxation pattern. RIGHT VENTRICLE The right ventricle is normal size. There is normal right ventricular wall thickness. The right ventr icular systolic function is normal. ATRIA The left atrium size is normal. The right atrium size is normal. The interatrial septum is intact wit h no evidence for an atrial septal defect or patent foramen ovale as noted on 2-D or Doppler imaging. AORTIC VALVE The aortic valve is normal in structure and function. The aortic valve is trileaflet. Doppler and Col or Flow revealed no significant aortic regurgitation. There is no significant aortic valvular stenosi s. MITRAL VALVE The mitral valve is normal in structure and function. There is no evidence of mitral valve prolapse. There is no mitral valve stenosis. Doppler and Color Flow revealed no mitral valve regurgitation note d. TRICUSPID VALVE The tricuspid valve is normal in structure and function. Doppler and Color Flow revealed trace tricus pid regurgitation. The PA pressure was estimated at 28 mmHg. There is no tricuspid valve prolapse or vegetation. There is no tricuspid valve stenosis. PULMONIC VALVE The pulmonic valve is not well visualized. GREAT VESSELS The aortic root is normal in size. The ascending aorta is normal in size. The IVC is normal in size a nd collapses >50% with inspiration. PERICARDIAL EFFUSION There is no evidence of significant pericardial effusion. Critical Notification Critical Value: No <Conclusion> The left ventricle is hyperdynamic. The Ejection Fraction is >70%. There is normal LV segmental wall motion. Signed by : Robin Mckay, Electronically Approved : 05/22/2018 13:07:14
--- NOTE | 2018-05-22 13:58 | NUR ---
SS following for discharge planning. SS reviewed pt chart. Pt is from home and is currently on room air. No discharge needs noted at this time. SS will continue to follow for pending discharge needs.
[2018-05-22] MEDS: amLODIPine BESYLATE 5 MG TABLET PO SCH (14:00)
--- NOTE | 2018-05-22 14:00 | RAD ---
PQRS Compliance Statement: One or more of the following individualized dose reduction techniques were utilized for this examination: 1. Automated exposure control 2. Adjustment of the mA and/or kV according to patient size 3. Use of iterative reconstruction technique CT chest without contrast May 22, 2018 INDICATION: Chest pain. Left shoulder pain. Rotator cuff tear. COMPARISON: CT chest November 06, 2014 TECHNIQUE: Multiple axial CT images of the chest obtained without venous contrast. Coronal and sagittal reformats are provided. FINDINGS: The thyroid gland is normal in appearance. There are no pathologically enlarged axillary, mediastinal or hilar lymph nodes within limitations of noncontrast examination. Heart size is within normal limits. Arterial structures appear intact. Three-vessel coronary artery vascular calcifications are identified. Thoracic aorta is normal in course and caliber. Thin rim of consolidation is identified at the posterior lung bases which may represent subsegmental atelectasis versus pulmonary infiltrates. There are no pleural effusions. No pulmonary vascular congestion or pneumothorax. No suspicious solid noncalcified pulmonary nodules are identified. Central airways appear clear. There is mild bronchial wall thickening suggestive of bronchitis. Acromioclavicular and glenohumeral joints appear intact. No suspicious osseous abnormality is identified. No acutely displaced rib fracture is identified. IMPRESSION: Bibasilar interstitial consolidation which may represent subsegmental atelectasis versus infiltrates. Mild bronchial wall thickening may be seen with bronchitis. No suspicious osseous abnormality is identified. Specifically, left acromioclavicular and glenohumeral joints are intact. Electronically signed by: Leslie Teresa MD (05/22/2018 1:58 PM) [facility]
[2018-05-22 15:07] VITALS: BP 161/95
[2018-05-22] MEDS: HYDROcodone/APAP 7.5/325MG 1 TAB TABLET PO PRN ×2 (17:07→20:23)
[2018-05-22] MEDS ORDERED: LIDO:MAALOX 1:1 20 ML SINGLE DOSE. PO PRN (17:45)
[2018-05-22] MEDS ORDERED: AZITHROMYCIN 250 MG TABLET. PO ONE (17:45)
--- NOTE | 2018-05-22 17:56 | HP ---
ADMIT DATE: 05/21/2018 CHIEF COMPLAINT: Shortness of breath. HISTORY OF PRESENT ILLNESS AND HOSPITAL COURSE: This patient is a 62-year-old female who came into the hospital complaining of chest pain and shortness of breath. She states this started approximately 3-4 days prior to admission. ER evaluation was negative for cardiac workup, but despite evaluation and treatment in ER, the patient had persistent pain. Therefore, she was admitted for further evaluation and rule out protocol. The patient did have ventilation perfusion scan, which was negative. Abdominal CAT scanning, which showed no evidence of intraabdominal inflammation. An abdominal ultrasound, which showed no gallbladder stones. The patient was treated with GI cocktail, but continued to have pain. CT chest was ordered by Cardiology. After negative cardiology workup, an occult infiltrate was noted retrocardiac hung. She did initially have a high white count as well as complaints of shortness of breath; therefore, the tentative diagnosis of pneumonia was made and the patient was moved from observation status to regular admission. Pulmonary Medicine was consulted. The patient was started on routine breathing treatments, IV antibiotics and IV steroids for pleuritic pain. PAST MEDICAL HISTORY: Significant for hypertension, COPD, irritable bowel syndrome, hyperlipidemia, generalized arthritis. PAST SURGICAL HISTORY: Significant for tonsillectomy in 1959, appendectomy in 1966, total abdominal hysterectomy and bilateral oophorectomy in 1991 with previous surgeries prior to this for endometriosis in 1979. FAMILY HISTORY: Her mother with colon cancer with associated problems of alcoholism, arthritis, hypertension, and glaucoma. Father at age 77 with heart disease, also having diabetes, alcoholism, generalized arthritis and asthma. Brother is alive with history of alcoholism. Sister is alive who is also alcoholic, has ongoing arthritis issues. SOCIAL HISTORY: The patient is a former smoker, not smoking for the last 10 years now. The patient uses alcohol, but only minimally. The patient is single, has one child and she lives alone. The patient is on disability for reflex sympathetic dystrophy and osteoarthritis. REVIEW OF SYSTEMS: She has been having right upper quadrant pain for almost a week and mid back pain. She had had diarrhea in the past month. She had negative colonoscopy in February 2018. The patient has not had fever until early in hospitalization, which she did have some temperatures up to 100. The patient has been having significant coughing and chest pain with some shortness of breath. No significant radiation. PHYSICAL EXAMINATION: GENERAL: This is a well-nourished, well-developed female in mild to moderate distress. She is alert and oriented x 3. HEENT: Benign. NECK: Supple. CARDIAC: Regular rate and rhythm. LUNGS: Clear anteriorly. ABDOMEN: Soft, nontender without masses. EXTREMITIES: 2+ pulses without significant edema. NEUROLOGIC: Intact. ASSESSMENT: 1. Occult community-acquired pneumonia. 2. Pleuritic type chest pains. PLAN: To proceed with IV antibiotics, Zithromax, IV steroids, breathing treatments and monitor the patient's symptoms. Cardiology did rule out cardiac disease and rule out NM during observation. We will consider GI evaluation if abdominal pain and right upper quadrant abdominal pain worsen. AKHIL BRIONES MD DR: ABY/carmen JOB#: [id number] / [id number]
[2018-05-22] MEDS: cefTRIAXone IV Push 1 GM VIAL. IVP SCH (18:36)
[2018-05-22 19:00] VITALS: BP 125/72
[2018-05-22] MEDS: IPRATRPIUM/ALBUTEROL 0.5/2.5MG 3 ML NEBU. NEB PRN ×2 (19:41→20:03)
[2018-05-22] MEDS: ATORVASTATIN CALCIUM 10 MG TABLET. PO SCH (20:21)
[2018-05-22] MEDS ORDERED: NON FORMULARY ITEM (Melatonin 10 MG) PO SCH (21:00)
[2018-05-22] MEDS: methylPREDNISolone SOD SUCC PF 40 MG/ML VIAL. IV SCH (21:40)
[2018-05-22 22:31] VITALS: BP 136/74
[2018-05-23] VITALS (7 sets, daily range): BP systolic 117–147; BP diastolic 65–78
[2018-05-23] MEDS: HYDROcodone/APAP 7.5/325MG 1 TAB TABLET PO PRN ×5 (02:14→20:56)
[2018-05-23 04:49] LABS: BASO % 0 % (0-3); EOS % 0 % (0-3); HEMATOCRIT 37.6 % (36.0-47.0); HEMOGLOBIN 12.5 g/dL (12.0-15.5); LYMPH # 0.6 x10^3/uL (1.0-4.8); LYMPH % 7 % (24-48); MEAN CORPUSCULAR HEMOGLOBIN 30 pg (25-35); MEAN CORPUSCULAR HGB CONC 33 g/dL (31-37); MEAN CORPUSCULAR VOLUME 91 fL (79-100); MONO # 0.3 x10^3/uL (0.0-1.1); MONO % 3 % (0-9); NEUT # 8.1 x10^3uL (1.8-7.7); NEUT % 90 % (31-73); PLATELET COUNT 267 x10^3/uL (140-400); RED BLOOD COUNT 4.14 x10^6/uL (3.50-5.40); RED CELL DISTRIBUTION WIDTH 13.7 % (11.5-14.5)
[2018-05-23 05:10] LABS: CALCIUM 8.7 mg/dL (8.5-10.1); CREATININE 0.7 mg/dL (0.6-1.0); GFR 84.5; POTASSIUM 4.3 mmol/L (3.5-5.1)
[2018-05-23] MEDS: BUDESONIDE 0.5 MG/2 ML NEBU. NEB SCH ×2 (07:43→20:04)
[2018-05-23] MEDS: ALBUTEROL SULFATE 2.5 MG/3 ML NEBU. NEB SCH ×4 (07:43→20:04)
[2018-05-23] MEDS: CITALOPRAM 20 MG TABLET. PO SCH (08:25)
[2018-05-23] MEDS: CETIRIZINE HCL 10 MG TABLET. PO SCH (08:25)
[2018-05-23] MEDS: FLUTICASONE 50MCG/NASAL SPRAY 16GM BOTTLE. NS SCH (08:26)
[2018-05-23] MEDS: amLODIPine BESYLATE 5 MG TABLET PO SCH (08:26)
[2018-05-23] MEDS: methylPREDNISolone SOD SUCC PF 40 MG/ML VIAL. IV SCH ×2 (08:26→20:43)
[2018-05-23] MEDS ORDERED: AZITHROMYCIN 250 MG TABLET. PO SCH (09:00)
--- NOTE | 2018-05-23 09:41 | PDOC2 ---
GI CONSULT Reason For Consult: RUQ pain, diarrhea HPI: HPI: 62 y/o female who reports acute onset of central chest pain spreading to both sides and around to back on Saturday after standing up. "I thought I had been shot." Constant but worse w/ movement, breathing, and coughing. Had not been feeling well ("like I was getting a cold - shortness of breath and scratchy throat") x 1 month. Also some decreased appetite during this time, estimate 9- 10 pound weight loss. Also vomited once about 5 days ago. Reports had some RUQ discomfort when someone else examined her. Pain (all locations) is not aggravated by eating but "the food sucks here." Note - GI cocktail not helpful. Occasional GERD improved w/ apple cider vinegar and honey. No dysphagia. No hematemesis. H/o diarrhea since , also improved w/ apple cider vinegar. Says Imodium was recommended but she doesn't want to take any more pills. Regardless, no she feels constipated - last stool was on Saturday. Has used Metamucil (didn't like it) and Colace in the past. No hematochezia or melena though has had a couple instances of seeing red blood w/ wiping in the past - associated w/ passing a large stool. No previous EGD. Normal colonoscopy w/ normal random biopsies in 02/2018. No GB, liver, pancreas, or PUD history. Reports "bowel obstruction" and injury to bladder during past exploratory surgery for endometriosis requiring some sort of repair. H/o RSD previously on Fentanyl patch, now takes ibuprofen and Tylenol along w/ CBD oil. PMH: PMH: HLD, COPD, RSD, OA, depression, allergic rhinitis, endometriosis, right rotator cuff tear appendectomy, tonsillectomy, expl lap x 3, repair of surgical injury to bladder ?and LORI FH: Family History: No pertinent hx Social History: Smoke: Quit ALCOHOL: none Drugs: Other (CBD oil) ROS: GEN: Denies fevers, chills, sweats HEENT: Denies blurred vision, sore throat CV: +chest pain RESP: +SOA GI: Per HPI : Denies hematuria, dysuria ENDO: +weight loss NEURO: Denies confusion, dizziness MSK: +chronic pain SKIN: Denies jaundice, pruritus Vitals: Vitals: Vital Signs Date Time Temp Pulse Resp B/P (MAP) Pulse Ox O2 Delivery O2 Flow Rate FiO2 05/23/18 08:23 Room Air 05/23/18 07:43 97 05/23/18 07:22 98.2 101 16 138/73 (94) 98.2 Labs: Labs: Laboratory Tests Test 05/22/18 09:50 05/23/18 03:50 Influenza Type A Antigen Negative (NEGATIVE) Influenza Type B Antigen Negative (NEGATIVE) White Blood Count 9.0 x10^3/uL (4.0-11.0) Red Blood Count 4.14 x10^6/uL (3.50-5.40) Hemoglobin 12.5 g/dL (12.0-15.5) Hematocrit 37.6 % (36.0-47.0) Mean Corpuscular Volume 91 fL (79-100) Mean Corpuscular Hemoglobin 30 pg (25-35) Mean Corpuscular Hemoglobin Concent 33 g/dL (31-37) Red Cell Distribution Width 13.7 % (11.5-14.5) Platelet Count 267 x10^3/uL (140-400) Neutrophils (%) (Auto) 90 % (31-73) Lymphocytes (%) (Auto) 7 % (24-48) Monocytes (%) (Auto) 3 % (0-9) Eosinophils (%) (Auto) 0 % (0-3) Basophils (%) (Auto) 0 % (0-3) Neutrophils # (Auto) 8.1 x10^3uL (1.8-7.7) Lymphocytes # (Auto) 0.6 x10^3/uL (1.0-4.8) Monocytes # (Auto) 0.3 x10^3/uL (0.0-1.1) Eosinophils # (Auto) 0.0 x10^3/uL (0.0-0.7) Basophils # (Auto) 0.0 x10^3/uL (0.0-0.2) Sodium Level 139 mmol/L (136-145) Potassium Level 4.3 mmol/L (3.5-5.1) Chloride Level 101 mmol/L (98-107) Carbon Dioxide Level 30 mmol/L (21-32) Anion Gap 8 (6-14) Blood Urea Nitrogen 7 mg/dL (7-20) Creatinine 0.7 mg/dL (0.6-1.0) Estimated GFR (Cockcroft-Gault) 84.5 Glucose Level 183 mg/dL (70-99) Calcium Level 8.7 mg/dL (8.5-10.1) Allergies: Coded Allergies: morphine (Verified Adverse Reaction, Mild, VOMITING, 03/26/18) Medications: Current Medications Medications (Trade) Dose Ordered Sig/Jonatan Route PRN Reason Start Time Stop Time Status Last Admin Dose Admin Atorvastatin Calcium (Lipitor) 10 mg HS PO 05/22/18 21:00 05/22/18 20:21 Acetaminophen/ Hydrocodone Bitart (Lortab 7.5/325) 2 tab PRN Q6HRS PRN PO PAIN SEVERE 05/22/18 13:00 05/23/18 08:23 Acetaminophen/ Hydrocodone Bitart (Lortab 7.5/325) 1 tab PRN Q6HRS PRN PO PAIN MODERATE 05/22/18 13:00 05/22/18 20:23 Methylprednisolone Sodium Succinate (SOLU-Medrol 40MG VIAL) 40 mg Q12HR IV 05/22/18 21:00 05/23/18 08:26 Ceftriaxone Sodium (Rocephin) 1 gm Q24H IVP 05/22/18 18:00 05/22/18 18:36 Imaging: Imaging: CXR IMPRESSION: No acute cardiopulmonary process. CT A/P IMPRESSION: 1. No evidence for acute cholecystitis. 2. Pancreas is normal without evidence for acute pancreatitis. 3. Moderate colonic stool content is seen. No bowel obstruction. 4. Mild bladder wall thickening, nonspecific possibly cystitis or physiologic for this patient. VQ Scan IMPRESSION: Low probability study. Abd US IMPRESSION: 1. Distended gallbladder. This can be due to a preprandial patient status. There is no clear gallbladder wall thickening to suggest cholecystitis. 2. Partially obscured left kidney due to bowel gas. 3. Otherwise, relatively unremarkable abdomen sonogram. Chest CT IMPRESSION: Bibasilar interstitial consolidation which may represent subsegmental atelectasis versus infiltrates. Mild bronchial wall thickening may be seen with bronchitis. No suspicious osseous abnormality is identified. Specifically, left acromioclavicular and glenohumeral joints are intact. PE: GEN: NAD HEENT: Atraumatic, PERRL LUNGS: CTAB HEART: RRR ABD: NABS, soft, non-distended, vague tenderness RUQ, RLQ (says chronic - "adhesions"), and LLQ - non-tender in epigastrium and LUQ EXTREMITY: No edema SKIN: No rashes, no jaundice NEURO/PSYCH: A & O 3 A/P: A/P: Atypical chest pain, SOA Decreased appetite, weight loss Abd pain - vague Occasional GERD symptoms CRC screen - UTD H/o diarrhea but now feels constipated H/o RSD/chronic pain NSAID use -- Reviewed w/ Dr. Santizo - check PIPIDA for RUQ pain - can pursue either inpt or outpt - have to wait 48 hrs after VQ scan. Would try empiric PPI QD, consider EGD at some point. Add Miralax if she wants - fiber might be a good option long-term. EDY GORE May 23, 2018 09:41
[2018-05-23 10:05] LABS: % BANDS 10 % (0-9); % LYMPHS 6 % (24-48); % MONOS 3 % (0-10); % SEGS 81 % (35-66)
[2018-05-23 10:06] LABS: PLT ESTIMATE ADEQUATE (ADEQUATE)
[2018-05-23] MEDS: PANTOPRAZOLE 40 MG TABLET.DR. PO SCH (12:01)
[2018-05-23] MEDS: POLYETHYLENE GLYCOL 3350 17 GM PACKET. PO PRN (12:01)
--- NOTE | 2018-05-23 12:47 | PDOC ---
PULMONARY PROGRESS NOTES Vitals Vital Signs Date Time Temp Pulse Resp B/P (MAP) Pulse Ox O2 Delivery O2 Flow Rate FiO2 05/23/18 11:14 97 Room Air 05/23/18 10:47 98.0 84 16 147/76 (99) 98.0 Labs Laboratory Tests Test 05/21/18 15:20 05/21/18 16:05 05/21/18 21:05 05/22/18 09:37 Urine Collection Type Unknown Urine Color Yellow Urine Clarity Clear Urine pH 5.5 Urine Specific [place] 1.010 Urine Protein Negative mg/dL (NEG-TRACE) Urine Glucose (UA) Negative mg/dL (NEG) Urine Ketones (Stick) Negative mg/dL (NEG) Urine Blood Negative (NEG) Urine Nitrite Negative (NEG) Urine Bilirubin Negative (NEG) Urine Urobilinogen Dipstick 0.2 mg/dL (0.2 mg/dL) Urine Leukocyte Esterase Negative (NEG) Urine RBC 0 /HPF (0-2) Urine WBC Rare /HPF (0-4) Urine Squamous Epithelial Cells Few /LPF Urine Bacteria Few /HPF (0-FEW) Urine Opiates Screen Neg (NEG) Urine Methadone Screen Neg (NEG) Urine Barbiturates Neg (NEG) Urine Phencyclidine Screen Neg (NEG) Urine Amphetamine/Methamphetamine Neg (NEG) Urine Benzodiazepines Screen Neg (NEG) Urine Cocaine Screen Neg (NEG) Urine Cannabinoids Screen Pos (NEG) Urine Ethyl Alcohol Neg (NEG) White Blood Count 13.0 x10^3/uL (4.0-11.0) 10.3 x10^3/uL (4.0-11.0) Red Blood Count 4.34 x10^6/uL (3.50-5.40) 4.43 x10^6/uL (3.50-5.40) Hemoglobin 12.8 g/dL (12.0-15.5) 13.4 g/dL (12.0-15.5) Hematocrit 39.5 % (36.0-47.0) 40.4 % (36.0-47.0) Mean Corpuscular Volume 91 fL (79-100) 91 fL (79-100) Mean Corpuscular Hemoglobin 29 pg (25-35) 30 pg (25-35) Mean Corpuscular Hemoglobin Concent 32 g/dL (31-37) 33 g/dL (31-37) Red Cell Distribution Width 13.6 % (11.5-14.5) 13.8 % (11.5-14.5) Platelet Count 300 x10^3/uL (140-400) 279 x10^3/uL (140-400) Neutrophils (%) (Auto) 71 % (31-73) 75 % (31-73) Lymphocytes (%) (Auto) 17 % (24-48) 13 % (24-48) Monocytes (%) (Auto) 10 % (0-9) 11 % (0-9) Eosinophils (%) (Auto) 1 % (0-3) 0 % (0-3) Basophils (%) (Auto) 1 % (0-3) 1 % (0-3) Neutrophils # (Auto) 9.2 x10^3uL (1.8-7.7) 7.7 x10^3uL (1.8-7.7) Lymphocytes # (Auto) 2.2 x10^3/uL (1.0-4.8) 1.4 x10^3/uL (1.0-4.8) Monocytes # (Auto) 1.3 x10^3/uL (0.0-1.1) 1.1 x10^3/uL (0.0-1.1) Eosinophils # (Auto) 0.1 x10^3/uL (0.0-0.7) 0.0 x10^3/uL (0.0-0.7) Basophils # (Auto) 0.1 x10^3/uL (0.0-0.2) 0.1 x10^3/uL (0.0-0.2) D-Dimer (Ruth) 0.52 ug/mlFEU (0.00-0.50) Sodium Level 137 mmol/L (136-145) 141 mmol/L (136-145) Potassium Level 3.9 mmol/L (3.5-5.1) 4.0 mmol/L (3.5-5.1) Chloride Level 101 mmol/L (98-107) 102 mmol/L (98-107) Carbon Dioxide Level 28 mmol/L (21-32) 30 mmol/L (21-32) Anion Gap 8 (6-14) 9 (6-14) Blood Urea Nitrogen 15 mg/dL (7-20) 8 mg/dL (7-20) Creatinine 0.7 mg/dL (0.6-1.0) 0.6 mg/dL (0.6-1.0) Estimated GFR (Cockcroft-Gault) 84.5 101.0 BUN/Creatinine Ratio 21 (6-20) Glucose Level 99 mg/dL (70-99) 92 mg/dL (70-99) Calcium Level 8.9 mg/dL (8.5-10.1) 9.0 mg/dL (8.5-10.1) Total Bilirubin 0.4 mg/dL (0.2-1.0) Aspartate Amino Transf (AST/SGOT) 21 U/L (15-37) Alanine Aminotransferase (ALT/SGPT) 31 U/L (14-59) Alkaline Phosphatase 83 U/L (46-116) Troponin I Quantitative < 0.017 ng/mL (0.000-0.055) < 0.017 ng/mL (0.000-0.055) Total Protein 7.4 g/dL (6.4-8.2) Albumin 3.5 g/dL (3.4-5.0) Albumin/Globulin Ratio 0.9 (1.0-1.7) Lipase 222 U/L (73-393) Triglycerides Level 123 mg/dL (0-150) Cholesterol Level 166 mg/dL (0-200) LDL Cholesterol, Calculated 69 mg/dL (0-100) VLDL Cholesterol, Calculated 25 mg/dL (0-40) Non-HDL Cholesterol Calculated 94 mg/dL (0-129) HDL Cholesterol 72 mg/dL (40-60) Cholesterol/HDL Ratio 2.3 Thyroid Stimulating Hormone (TSH) 0.638 uIU/mL (0.358-3.74) Test 05/22/18 09:50 05/23/18 03:50 Influenza Type A Antigen Negative (NEGATIVE) Influenza Type B Antigen Negative (NEGATIVE) White Blood Count 9.0 x10^3/uL (4.0-11.0) Red Blood Count 4.14 x10^6/uL (3.50-5.40) Hemoglobin 12.5 g/dL (12.0-15.5) Hematocrit 37.6 % (36.0-47.0) Mean Corpuscular Volume 91 fL (79-100) Mean Corpuscular Hemoglobin 30 pg (25-35) Mean Corpuscular Hemoglobin Concent 33 g/dL (31-37) Red Cell Distribution Width 13.7 % (11.5-14.5) Platelet Count 267 x10^3/uL (140-400) Neutrophils (%) (Auto) 90 % (31-73) Lymphocytes (%) (Auto) 7 % (24-48) Monocytes (%) (Auto) 3 % (0-9) Eosinophils (%) (Auto) 0 % (0-3) Basophils (%) (Auto) 0 % (0-3) Neutrophils # (Auto) 8.1 x10^3uL (1.8-7.7) Lymphocytes # (Auto) 0.6 x10^3/uL (1.0-4.8) Monocytes # (Auto) 0.3 x10^3/uL (0.0-1.1) Eosinophils # (Auto) 0.0 x10^3/uL (0.0-0.7) Basophils # (Auto) 0.0 x10^3/uL (0.0-0.2) Segmented Neutrophils % 81 % (35-66) Band Neutrophils % 10 % (0-9) Lymphocytes % 6 % (24-48) Monocytes % 3 % (0-10) Platelet Estimate Adequate (ADEQUATE) Large Platelets Occ Sodium Level 139 mmol/L (136-145) Potassium Level 4.3 mmol/L (3.5-5.1) Chloride Level 101 mmol/L (98-107) Carbon Dioxide Level 30 mmol/L (21-32) Anion Gap 8 (6-14) Blood Urea Nitrogen 7 mg/dL (7-20) Creatinine 0.7 mg/dL (0.6-1.0) Estimated GFR (Cockcroft-Gault) 84.5 Glucose Level 183 mg/dL (70-99) Calcium Level 8.7 mg/dL (8.5-10.1) Laboratory Tests Test 05/23/18 03:50 White Blood Count 9.0 x10^3/uL (4.0-11.0) Red Blood Count 4.14 x10^6/uL (3.50-5.40) Hemoglobin 12.5 g/dL (12.0-15.5) Hematocrit 37.6 % (36.0-47.0) Mean Corpuscular Volume 91 fL (79-100) Mean Corpuscular Hemoglobin 30 pg (25-35) Mean Corpuscular Hemoglobin Concent 33 g/dL (31-37) Red Cell Distribution Width 13.7 % (11.5-14.5) Platelet Count 267 x10^3/uL (140-400) Neutrophils (%) (Auto) 90 % (31-73) Lymphocytes (%) (Auto) 7 % (24-48) Monocytes (%) (Auto) 3 % (0-9) Eosinophils (%) (Auto) 0 % (0-3) Basophils (%) (Auto) 0 % (0-3) Neutrophils # (Auto) 8.1 x10^3uL (1.8-7.7) Lymphocytes # (Auto) 0.6 x10^3/uL (1.0-4.8) Monocytes # (Auto) 0.3 x10^3/uL (0.0-1.1) Eosinophils # (Auto) 0.0 x10^3/uL (0.0-0.7) Basophils # (Auto) 0.0 x10^3/uL (0.0-0.2) Segmented Neutrophils % 81 % (35-66) Band Neutrophils % 10 % (0-9) Lymphocytes % 6 % (24-48) Monocytes % 3 % (0-10) Platelet Estimate Adequate (ADEQUATE) Large Platelets Occ Sodium Level 139 mmol/L (136-145) Potassium Level 4.3 mmol/L (3.5-5.1) Chloride Level 101 mmol/L (98-107) Carbon Dioxide Level 30 mmol/L (21-32) Anion Gap 8 (6-14) Blood Urea Nitrogen 7 mg/dL (7-20) Creatinine 0.7 mg/dL (0.6-1.0) Estimated GFR (Cockcroft-Gault) 84.5 Glucose Level 183 mg/dL (70-99) Calcium Level 8.7 mg/dL (8.5-10.1) Medications Active Scripts Medications Dose Route/Sig Max Daily Dose Days Date Category Symbicort 160-4.5 Mcg Inhaler (Budesonide/Formoterol Fumarate) 10.2 Gm Hfa.aer.ad 10.2 Gm IH DAILY 05/21/18 Reported Fluticasone Propionate Nasal [place] (Fluticasone Propionate) 16 Gm [place].susp 16 Gm IH DAILY 05/21/18 Reported Fexofenadine Hcl 180 Mg Tablet 180 Mg PO DAILY 05/21/18 Reported Melatonin 3 Mg Tablet 10 Mg PO QHS 03/26/18 Reported Atorvastatin Calcium 10 Mg Tablet 10 Mg PO HS 03/26/18 Reported Escitalopram Oxalate 10 Mg Tablet 10 Mg PO DAILY 03/26/18 Reported Impression . NOTE DICTATED OK TO D/C ON DOXY OR ZITHROMAX AECOPD/PNEUMONIA/PLEURISY THANKS MARTHA GOMES MD May 23, 2018 12:47
--- NOTE | 2018-05-23 17:21 | PDOC ---
PROGRESS NOTES Subjective Subjective Patient feeling better today but still has significant chest pain and fatigue. Patient's chest pain is more pleuritic today. Objective Objective Vital Signs Date Time Temp Pulse Resp B/P (MAP) Pulse Ox O2 Delivery O2 Flow Rate FiO2 05/23/18 16:30 Room Air 05/23/18 14:41 98.0 82 16 128/75 (92) 92 98.0 Intake and Output 05/23/18 07:00 Intake Total 820 ml Output Total 300 ml Balance 520 ml Intake Oral 820 ml Output Urine Total 300 ml # Voids 2 Physical Exam Abdomen: Normal bowel sounds Heart: Regular rate Extremities: No edema General: Alert Lungs: Other (coarse breath sounds posterior lung banks) Assessment Assessment Problems Medical Problems: (1) Chest pain Status: Acute Community-acquired pneumonia. Exacerbation of COPD. Pleuritic chest pain. Plan Plan of Care Continue pulmonary toilet with oxygen support breathing treatments IV steroids and IV antibiotics. Switch to by mouth medications and prednisone taper in a.m. possible discharge if stable. Comment Review of Relevant I have reviewed the following items emerson (where applicable) has been applied. Labs Laboratory Tests Test 05/21/18 21:05 05/22/18 09:37 05/22/18 09:50 05/23/18 03:50 Troponin I Quantitative < 0.017 ng/mL (0.000-0.055) White Blood Count 10.3 x10^3/uL (4.0-11.0) 9.0 x10^3/uL (4.0-11.0) Red Blood Count 4.43 x10^6/uL (3.50-5.40) 4.14 x10^6/uL (3.50-5.40) Hemoglobin 13.4 g/dL (12.0-15.5) 12.5 g/dL (12.0-15.5) Hematocrit 40.4 % (36.0-47.0) 37.6 % (36.0-47.0) Mean Corpuscular Volume 91 fL (79-100) 91 fL (79-100) Mean Corpuscular Hemoglobin 30 pg (25-35) 30 pg (25-35) Mean Corpuscular Hemoglobin Concent 33 g/dL (31-37) 33 g/dL (31-37) Red Cell Distribution Width 13.8 % (11.5-14.5) 13.7 % (11.5-14.5) Platelet Count 279 x10^3/uL (140-400) 267 x10^3/uL (140-400) Neutrophils (%) (Auto) 75 % (31-73) 90 % (31-73) Lymphocytes (%) (Auto) 13 % (24-48) 7 % (24-48) Monocytes (%) (Auto) 11 % (0-9) 3 % (0-9) Eosinophils (%) (Auto) 0 % (0-3) 0 % (0-3) Basophils (%) (Auto) 1 % (0-3) 0 % (0-3) Neutrophils # (Auto) 7.7 x10^3uL (1.8-7.7) 8.1 x10^3uL (1.8-7.7) Lymphocytes # (Auto) 1.4 x10^3/uL (1.0-4.8) 0.6 x10^3/uL (1.0-4.8) Monocytes # (Auto) 1.1 x10^3/uL (0.0-1.1) 0.3 x10^3/uL (0.0-1.1) Eosinophils # (Auto) 0.0 x10^3/uL (0.0-0.7) 0.0 x10^3/uL (0.0-0.7) Basophils # (Auto) 0.1 x10^3/uL (0.0-0.2) 0.0 x10^3/uL (0.0-0.2) Sodium Level 141 mmol/L (136-145) 139 mmol/L (136-145) Potassium Level 4.0 mmol/L (3.5-5.1) 4.3 mmol/L (3.5-5.1) Chloride Level 102 mmol/L (98-107) 101 mmol/L (98-107) Carbon Dioxide Level 30 mmol/L (21-32) 30 mmol/L (21-32) Anion Gap 9 (6-14) 8 (6-14) Blood Urea Nitrogen 8 mg/dL (7-20) 7 mg/dL (7-20) Creatinine 0.6 mg/dL (0.6-1.0) 0.7 mg/dL (0.6-1.0) Estimated GFR (Cockcroft-Gault) 101.0 84.5 Glucose Level 92 mg/dL (70-99) 183 mg/dL (70-99) Calcium Level 9.0 mg/dL (8.5-10.1) 8.7 mg/dL (8.5-10.1) Triglycerides Level 123 mg/dL (0-150) Cholesterol Level 166 mg/dL (0-200) LDL Cholesterol, Calculated 69 mg/dL (0-100) VLDL Cholesterol, Calculated 25 mg/dL (0-40) Non-HDL Cholesterol Calculated 94 mg/dL (0-129) HDL Cholesterol 72 mg/dL (40-60) Cholesterol/HDL Ratio 2.3 Thyroid Stimulating Hormone (TSH) 0.638 uIU/mL (0.358-3.74) Influenza Type A Antigen Negative (NEGATIVE) Influenza Type B Antigen Negative (NEGATIVE) Segmented Neutrophils % 81 % (35-66) Band Neutrophils % 10 % (0-9) Lymphocytes % 6 % (24-48) Monocytes % 3 % (0-10) Platelet Estimate Adequate (ADEQUATE) Large Platelets Occ Laboratory Tests Test 05/23/18 03:50 White Blood Count 9.0 x10^3/uL (4.0-11.0) Red Blood Count 4.14 x10^6/uL (3.50-5.40) Hemoglobin 12.5 g/dL (12.0-15.5) Hematocrit 37.6 % (36.0-47.0) Mean Corpuscular Volume 91 fL (79-100) Mean Corpuscular Hemoglobin 30 pg (25-35) Mean Corpuscular Hemoglobin Concent 33 g/dL (31-37) Red Cell Distribution Width 13.7 % (11.5-14.5) Platelet Count 267 x10^3/uL (140-400) Neutrophils (%) (Auto) 90 % (31-73) Lymphocytes (%) (Auto) 7 % (24-48) Monocytes (%) (Auto) 3 % (0-9) Eosinophils (%) (Auto) 0 % (0-3) Basophils (%) (Auto) 0 % (0-3) Neutrophils # (Auto) 8.1 x10^3uL (1.8-7.7) Lymphocytes # (Auto) 0.6 x10^3/uL (1.0-4.8) Monocytes # (Auto) 0.3 x10^3/uL (0.0-1.1) Eosinophils # (Auto) 0.0 x10^3/uL (0.0-0.7) Basophils # (Auto) 0.0 x10^3/uL (0.0-0.2) Segmented Neutrophils % 81 % (35-66) Band Neutrophils % 10 % (0-9) Lymphocytes % 6 % (24-48) Monocytes % 3 % (0-10) Platelet Estimate Adequate (ADEQUATE) Large Platelets Occ Sodium Level 139 mmol/L (136-145) Potassium Level 4.3 mmol/L (3.5-5.1) Chloride Level 101 mmol/L (98-107) Carbon Dioxide Level 30 mmol/L (21-32) Anion Gap 8 (6-14) Blood Urea Nitrogen 7 mg/dL (7-20) Creatinine 0.7 mg/dL (0.6-1.0) Estimated GFR (Cockcroft-Gault) 84.5 Glucose Level 183 mg/dL (70-99) Calcium Level 8.7 mg/dL (8.5-10.1) Medications Current Medications Aspirin (Children'S Aspirin) 324 mg 1X ONCE PO Last administered on 05/21/18 16:17; Start 05/21/18 at 16:00; Stop 05/21/18 at 16:01; Status DC Sodium Chloride 1,000 ml @ 1,000 mls/hr Q1H IV Last administered on 05/21/18 16:21; Start 05/21/18 at 15:52; Stop 05/21/18 at 16:51; Status DC Ondansetron HCl (Zofran) 4 mg 1X ONCE IV Last administered on 05/21/18 16:18 ; Start 05/21/18 at 16:00; Stop 05/21/18 at 16:01; Status DC Fentanyl Citrate (Fentanyl 2ml Vial) 50 mcg 1X ONCE IV Last administered on at 16:20; Start 05/21/18 at 16:00; Stop 05/21/18 at 16:01; Status DC Iohexol (Omnipaque 300 Mg/ml) 75 ml 1X ONCE IV Last administered on 05/21/18at 16:48; Start 05/21/18 at 16:30; Stop 05/21/18 at 16:31; Status DC Info (CONTRAST GIVEN -- Rx MONITORING) 1 each PRN DAILY PRN MC SEE COMMENTS; Start 05/21/18 at 16:45; Stop 05/23/18 at 16:44; Status DC Fentanyl Citrate (Fentanyl 2ml Vial) 50 mcg 1X ONCE IV Last administered on at 18:46; Start 05/21/18 at 18:15; Stop 05/21/18 at 18:16; Status DC Multi-Ingredient Mouthwash/Gargle (Gi Cocktail) 20 ml 1X ONCE SWSW Last administered on 05/21/18at 21:20; Start 05/21/18 at 18:15; Stop 05/21/18 at 18:17 ; Status DC Ondansetron HCl (Zofran) 4 mg PRN Q8HRS PRN IV NAUSEA/VOMITING Last administered on 05/22/18at 05:15; Start 05/21/18 at 18:15; Stop 05/22/18 at 18:14 ; Status DC Fentanyl Citrate (Fentanyl 2ml Vial) 50 mcg PRN Q1HR PRN IV PAIN Last administered on 05/22/18at 10:59; Start 05/21/18 at 18:15; Stop 05/22/18 at 12:58 ; Status DC Acetaminophen (Tylenol) 650 mg PRN Q4HRS PRN PO FEVER; Start 05/21/18 at 18:15 ; Stop 05/22/18 at 18:14; Status DC Nitroglycerin (Nitrostat) 0.4 mg PRN Q5MIN PRN SL CHEST PAIN; Start 05/21/18 at 18:15; Stop 05/22/18 at 18:14; Status DC Atorvastatin Calcium (Lipitor) 10 mg HS PO Last administered on 05/22/18at 20:21 ; Start 05/22/18 at 21:00 Fluticasone Propionate (Flonase) 2 spray DAILY NS Last administered on at 08:26; Start 05/22/18 at 09:00 Non-Formulary Medication (Budesonide/ Formoterol Fumarate (Symbicort 160-4.5 Mcg Inhaler)) 10.2 gm DAILY IH ; Start 05/22/18 at 09:00; Status UNV Citalopram Hydrobromide (CeleXA) 20 mg DAILY PO Last administered on 05/23/18at 08:25; Start 05/22/18 at 09:00 Cetirizine HCl (ZyrTEC) 10 mg DAILY PO Last administered on 05/23/18at 08:25; Start 05/22/18 at 09:00 Non-Formulary Medication (Melatonin ) 10 mg QHS PO ; Start 05/22/18 at 21:00; Status UNV Albuterol/ Ipratropium (Duoneb) 3 ml RTQID PRN NEB COUGH; Start 05/22/18 at 07: 45; Status UNV Albuterol Sulfate (Ventolin Neb Soln) 2.5 mg RTQID NEB ; Start 05/22/18 at 08:00 ; Status UNV Budesonide (Pulmicort) 0.5 mg RTBID NEB Last administered on 05/23/18at 07:43; Start 05/22/18 at 08:00 Albuterol Sulfate (Ventolin Neb Soln) 2.5 mg RTQID NEB Last administered on at 14:52; Start 05/22/18 at 08:00 Albuterol Sulfate (Ventolin Neb Soln) 2.5 mg PRN Q6HRS PRN NEB SHORTNESS OF BREATH/ COUGH; Start 05/22/18 at 08:00 Acetaminophen/ Hydrocodone Bitart (Lortab 7.5/325) 2 tab PRN Q6HRS PRN PO PAIN SEVERE Last administered on 05/23/18at 15:04; Start 05/22/18 at 13:00 Acetaminophen/ Hydrocodone Bitart (Lortab 7.5/325) 1 tab PRN Q6HRS PRN PO PAIN MODERATE Last administered on 05/22/18at 20:23; Start 05/22/18 at 13:00 Amlodipine Besylate (Norvasc) 5 mg DAILY PO ; Start 05/22/18 at 14:00 Methylprednisolone Sodium Succinate (SOLU-Medrol 40MG VIAL) 40 mg Q12HR IV Last administered on 05/23/18at 08:26; Start 05/22/18 at 21:00 Azithromycin (Zithromax) 500 mg 1X ONCE PO ; Start 05/22/18 at 17:45; Stop at 17:46; Status UNV Azithromycin (Zithromax) 250 mg DAILY PO ; Start 05/23/18 at 09:00; Stop at 08:59; Status UNV Multi-Ingredient Mouthwash/Gargle (Gi Cocktail) 20 ml PRN QID PRN PO CHEST PAIN ; Start 05/22/18 at 17:45 Ceftriaxone Sodium (Rocephin) 1 gm Q24H IVP Last administered on 05/22/18at 18: 36; Start 05/22/18 at 18:00 Lactobacillus Rhamnosus (Culturelle) 1 cap BID PO ; Start 05/23/18 at 21:00 Pantoprazole Sodium (Protonix) 40 mg DAILYAC PO Last administered on 05/23/18at 12:01; Start 05/23/18 at 11:30 Polyethylene Glycol (miraLAX PACKET) 17 gm PRN BID PRN PO CONSTIPATION Last administered on 05/23/18at 12:01; Start 05/23/18 at 10:15 Active Scripts Active Reported Symbicort 160-4.5 Mcg Inhaler (Budesonide/Formoterol Fumarate) 10.2 Gm Hfa.aer.ad 10.2 Gm IH DAILY Fluticasone Propionate Nasal [place] (Fluticasone Propionate) 16 Gm [place].susp 16 Gm IH DAILY Fexofenadine Hcl 180 Mg Tablet 180 Mg PO DAILY Melatonin 3 Mg Tablet 10 Mg PO QHS Atorvastatin Calcium 10 Mg Tablet 10 Mg PO HS Escitalopram Oxalate 10 Mg Tablet 10 Mg PO DAILY Vitals/I & O Vital Sign - Last 24 Hours 05/22/18 05/22/18 05/22/18 05/22/18 19:00 19:30 20:23 20:41 Temp 98.7 98.7 Pulse 97 Resp 16 16 B/P (MAP) 125/72 (89) Pulse Ox 93 93 93 O2 Delivery Room Air Room Air Room Air Room Air 05/22/18 05/22/18 05/23/18 05/23/18 21:23 22:31 02:14 03:14 Temp 98.8 98.8 Pulse 101 Resp 16 16 16 16 B/P (MAP) 136/74 (94) Pulse Ox 93 96 96 93 O2 Delivery Room Air Room Air Room Air 05/23/18 05/23/18 05/23/18 05/23/18 03:30 07:22 07:43 08:23 Temp 98.0 98.2 98.0 98.2 Pulse 88 101 Resp 16 16 B/P (MAP) 135/77 (96) 138/73 (94) Pulse Ox 93 92 97 O2 Delivery Room Air Room Air Room Air Room Air 05/23/18 05/23/18 05/23/18 05/23/18 10:47 11:14 14:41 14:52 Temp 98.0 98.0 98.0 98.0 Pulse 84 82 Resp 16 16 B/P (MAP) 147/76 (99) 128/75 (92) Pulse Ox 97 97 92 O2 Delivery Room Air Room Air Room Air Room Air 05/23/18 05/23/18 15:04 16:30 O2 Delivery Room Air Room Air Intake and Output 05/22/18 05/22/18 05/23/18 15:00 23:00 07:00 Intake Total 120 ml 700 ml Output Total 300 ml Balance -180 ml 700 ml AKHIL BRIONES MD May 23, 2018 17:21
[2018-05-23] MEDS: cefTRIAXone IV Push 1 GM VIAL. IVP SCH (17:34)
[2018-05-23] MEDS: ATORVASTATIN CALCIUM 10 MG TABLET. PO SCH (20:42)
[2018-05-23] MEDS: LACTOBACILLUS RHAMNOSUS GG 1 CAPSULE. PO SCH (20:42)
[2018-05-24 03:18] VITALS: BP 129/71
--- NOTE | 2018-05-24 06:17 | CONS ---
DATE OF CONSULTATION: 05/23/2018 ATTENDING PHYSICIAN: Dr. Ennis. REASON FOR CONSULTATION: The patient seen in pulmonary consultation at the request of Dr. Ennis for increasing shortness of air, chest discomfort. HISTORY OF PRESENT ILLNESS: The patient is a 62-year-old that presented with acute onset of chest discomfort across the chest, not able to take in deep breath, cough productive of clear sputum. She was admitted. She underwent several diagnostic studies including V/Q scan, which was low probability. CT chest was personally reviewed. There is some basilar atelectasis, possible interstitial consolidation. There is mild bronchial wall thickening. The patient smoked for approximately 10 years, quit many years ago. PAST MEDICAL HISTORY: COPD, tobacco dependence, in remission; hypertension; irritable bowel; hyperlipidemia; generalized arthritis. PAST SURGICAL HISTORY: Tonsillectomy, appendectomy, total abdominal hysterectomy with bilateral oophorectomy. She has had previous difficulty with endometriosis, underwent surgical intervention. FAMILY HISTORY: Mother of colon cancer. Father at the age of 77 with complications of heart disease, diabetes and alcoholism. SOCIAL HISTORY: She is a former smoker. Denies any excessive alcohol intake. REVIEW OF SYSTEMS: CONSTITUTIONAL: Subjective fever. EYES: No change in visual acuity. HEENT: No nasal congestion or sore throat. PULMONARY: As indicated above. CARDIOVASCULAR: As indicated above. GASTROINTESTINAL: No nausea, vomiting, diarrhea. GENITOURINARY: No dysuria or frequency. MUSCULOSKELETAL: No localized muscle aches and joint pain. SKIN: No new skin rashes. NEUROLOGIC: No headaches, diplopia or blurred vision. MEDICATIONS: List was reviewed. PHYSICAL EXAMINATION: GENERAL: The patient was in no significant respiratory distress. VITAL SIGNS: Currently on room air saturation greater than 92%. HEENT: Eyes, the sclerae were nonicteric. NECK: Jugular venous distention was not elevated. No lymphadenopathy. CHEST: Full expansion. LUNGS: Adequate airway flow with no wheezes, rales or rhonchi. CARDIOVASCULAR: Regular rate and rhythm with S1, S2, no S3. ABDOMEN: Soft, nontender, nondistended. EXTREMITIES: No clubbing, cyanosis or edema. NEUROLOGIC: The patient was awake, alert, following commands. A detailed neuro exam was not performed. LABORATORY DATA: Serology for influenza was negative. White count was normal. Hemoglobin and hematocrit were noted. Electrolytes were noted. CT chest and V/Q as indicated above. IMPRESSION: 1. Progressive dyspnea secondary to acute exacerbation of chronic obstructive pulmonary disease, pneumonia, suspect gram negative. 2. Pleurisy. 3. Chest pain related to pleurisy. 4. Chronic obstructive pulmonary disease, tobacco dependence, in remission. PLAN: 1. Recommend continue steroids for both the acute exacerbation of COPD and pleurisy. 2. Discharge home, on doxycycline or Zithromax. 3. Avoid tobacco use. 4. Continue home Symbicort. Dr. Ennis, I do appreciate the privilege in sharing in the patient's care. MARTHA GOMES MD DR: KODY/carmen JOB#: [id number] / [id number]
[2018-05-24 07:00] VITALS: BP 143/74
[2018-05-24] MEDS: HYDROcodone/APAP 7.5/325MG 1 TAB TABLET PO PRN ×2 (07:13→16:45)
--- NOTE | 2018-05-24 08:18 | PDOC ---
SUBJECTIVE Subjective Pt states that she was doing better until this morning. Pt wonders if it is because she didn't take any pain medicine in the middle of the night. She does not feel comfortable going home today; still feels a lot of pain in her chest, still feels a little short of breath. OBJECTIVE Vital Signs Vital Signs Date Time Temp Pulse Resp B/P (MAP) Pulse Ox O2 Delivery O2 Flow Rate FiO2 05/24/18 07:00 98.0 74 18 143/74 (97) 96 Room Air 98.0 05/24/18 03:18 98.0 78 16 129/71 (90) 94 Room Air 98.0 05/23/18 23:07 98.8 88 16 130/77 (94) 93 Room Air 98.8 05/23/18 21:56 94 Room Air 05/23/18 20:56 95 Room Air 05/23/18 20:04 Room Air 05/23/18 20:00 Room Air 05/23/18 19:10 98.7 85 16 132/78 (96) 94 Room Air 98.7 05/23/18 17:56 98.0 86 16 117/65 (82) 92 Room Air 98.0 05/23/18 15:04 Room Air 05/23/18 14:52 Room Air 05/23/18 14:41 98.0 82 16 128/75 (92) 92 Room Air 98.0 05/23/18 11:14 97 Room Air 05/23/18 10:47 98.0 84 16 147/76 (99) 97 Room Air 98.0 05/23/18 08:23 Room Air I & O Intake and Output 05/24/18 07:00 Intake Total 2650 ml Output Total 300 ml Balance 2350 ml Intake Oral 2650 ml Output Urine Total 300 ml # Voids 7 PHYSICAL EXAM Physical Exam GEN: NAD, AOx3 HEENT: MMM, EOMI, no scleral icterus/injection Cardiac: RRR, no M/R/G Lungs: CTAB, regular breathing rate and effort Abd: non distended, NTTP Ext: no erythema/edema LE bilaterally Nuero: CN 2-12 GI ASSESSMENT/PLAN Assessment/Plan Pt is a 62yo CF admitted with chest pain 1)Chest pain- pt has significant workup over the past year for chest pain. Cardiac workup has been normal with several normal stress tests. It was thought pain was related to left shoulder pain. Pain bringing her in was slightly different than the normal pain she has. Thought to be pleuritic 2/2 COPD exacerbation 2)COPD Exacerbation- pt feels that she is improving but not quite ready to go home. Currently getting IV abx and IV steroids. Currently receiving pain medication 3)Hyperglycemia- likely 2/2 steroid use. HbA1C pending 4)Elevated Ddimer- V/Q scan low risk 5)Distended gallbladder- GI following. Possible PIPIDA scan either inpatient or outpatient. Pt currently without GI symptoms. EGD outpatient 6)HLD- pt continued on Atorvastatin 7)HTN- well controlled, continue Amlodipine 5mg 8)Depression- pt continued on Citalopram 20mg ALHAJI ESCOTO MD May 24, 2018 08:18
[2018-05-24] MEDS: ALBUTEROL SULFATE 2.5 MG/3 ML NEBU. NEB SCH ×4 (08:45→18:21)
[2018-05-24] MEDS: BUDESONIDE 0.5 MG/2 ML NEBU. NEB SCH ×2 (08:45→18:20)
[2018-05-24] MEDS: FLUTICASONE 50MCG/NASAL SPRAY 16GM BOTTLE. NS SCH (09:00)
[2018-05-24] MEDS: CETIRIZINE HCL 10 MG TABLET. PO SCH (09:19)
[2018-05-24] MEDS: PANTOPRAZOLE 40 MG TABLET.DR. PO SCH (09:19)
[2018-05-24] MEDS: amLODIPine BESYLATE 5 MG TABLET PO SCH (09:19)
[2018-05-24] MEDS: CITALOPRAM 20 MG TABLET. PO SCH (09:19)
[2018-05-24] MEDS: methylPREDNISolone SOD SUCC PF 40 MG/ML VIAL. IV SCH ×2 (09:19→20:49)
[2018-05-24] MEDS: LACTOBACILLUS RHAMNOSUS GG 1 CAPSULE. PO SCH ×2 (09:19→20:49)
[2018-05-24] MEDS: CYCLOBENZAPRINE 10 MG TABLET. PO SCH ×3 (09:22→20:49)
[2018-05-24] MEDS: POLYETHYLENE GLYCOL 3350 17 GM PACKET. PO PRN (10:12)
--- NOTE | 2018-05-24 10:51 | PDOC ---
PULMONARY PROGRESS NOTES Subjective PT WITH PLEURITIC PAIN Vitals Vital Signs Date Time Temp Pulse Resp B/P (MAP) Pulse Ox O2 Delivery O2 Flow Rate FiO2 05/24/18 09:19 74 143/74 05/24/18 07:00 98.0 18 96 Room Air 98.0 ROS: No Nausea, No Abdominal Pain General: Alert Lungs: Clear Cardiovascular: S1, S2 Abdomen: Soft Neuro Exam: Alert Extremities: No Edema Skin: Warm Labs Laboratory Tests Test 05/23/18 03:50 White Blood Count 9.0 x10^3/uL (4.0-11.0) Red Blood Count 4.14 x10^6/uL (3.50-5.40) Hemoglobin 12.5 g/dL (12.0-15.5) Hematocrit 37.6 % (36.0-47.0) Mean Corpuscular Volume 91 fL (79-100) Mean Corpuscular Hemoglobin 30 pg (25-35) Mean Corpuscular Hemoglobin Concent 33 g/dL (31-37) Red Cell Distribution Width 13.7 % (11.5-14.5) Platelet Count 267 x10^3/uL (140-400) Neutrophils (%) (Auto) 90 % (31-73) Lymphocytes (%) (Auto) 7 % (24-48) Monocytes (%) (Auto) 3 % (0-9) Eosinophils (%) (Auto) 0 % (0-3) Basophils (%) (Auto) 0 % (0-3) Neutrophils # (Auto) 8.1 x10^3uL (1.8-7.7) Lymphocytes # (Auto) 0.6 x10^3/uL (1.0-4.8) Monocytes # (Auto) 0.3 x10^3/uL (0.0-1.1) Eosinophils # (Auto) 0.0 x10^3/uL (0.0-0.7) Basophils # (Auto) 0.0 x10^3/uL (0.0-0.2) Segmented Neutrophils % 81 % (35-66) Band Neutrophils % 10 % (0-9) Lymphocytes % 6 % (24-48) Monocytes % 3 % (0-10) Platelet Estimate Adequate (ADEQUATE) Large Platelets Occ Sodium Level 139 mmol/L (136-145) Potassium Level 4.3 mmol/L (3.5-5.1) Chloride Level 101 mmol/L (98-107) Carbon Dioxide Level 30 mmol/L (21-32) Anion Gap 8 (6-14) Blood Urea Nitrogen 7 mg/dL (7-20) Creatinine 0.7 mg/dL (0.6-1.0) Estimated GFR (Cockcroft-Gault) 84.5 Glucose Level 183 mg/dL (70-99) Calcium Level 8.7 mg/dL (8.5-10.1) Medications Active Scripts Medications Dose Route/Sig Max Daily Dose Days Date Category Symbicort 160-4.5 Mcg Inhaler (Budesonide/Formoterol Fumarate) 10.2 Gm Hfa.aer.ad 10.2 Gm IH DAILY 05/21/18 Reported Fluticasone Propionate Nasal [place] (Fluticasone Propionate) 16 Gm [place].susp 16 Gm IH DAILY 05/21/18 Reported Fexofenadine Hcl 180 Mg Tablet 180 Mg PO DAILY 05/21/18 Reported Melatonin 3 Mg Tablet 10 Mg PO QHS 03/26/18 Reported Atorvastatin Calcium 10 Mg Tablet 10 Mg PO HS 03/26/18 Reported Escitalopram Oxalate 10 Mg Tablet 10 Mg PO DAILY 03/26/18 Reported Impression . IMPRESSION: 1. Progressive dyspnea secondary to acute exacerbation of chronic obstructive pulmonary disease, pneumonia, suspect gram negative. 2. Pleurisy. 3. Chest pain related to pleurisy. 4. Chronic obstructive pulmonary disease, tobacco dependence, in remission. Plan . ADD MOTRIN ? HOME IN AM 1. Recommend continue steroids for both the acute exacerbation of COPD and pleurisy. 2. Discharge home, on doxycycline or Zithromax. 3. Avoid tobacco use. 4. Continue home Symbicort. MARTHA GOMES MD May 24, 2018 10:51
[2018-05-24 11:04] VITALS: BP 162/76
[2018-05-24] MEDS ORDERED: IBUPROFEN 400 MG TABLET. PO ONE (12:30)
[2018-05-24 15:00] VITALS: BP 115/67
[2018-05-24] MEDS: cefTRIAXone IV Push 1 GM VIAL. IVP SCH (17:56)
[2018-05-24 19:30] VITALS: BP_SYST 111
[2018-05-24] MEDS: ATORVASTATIN CALCIUM 10 MG TABLET. PO SCH (20:49)
[2018-05-24] MEDS: IBUPROFEN 400 MG TABLET. PO SCH (22:28)
[2018-05-24 23:22] VITALS: BP 125/68
[2018-05-25 02:09] LABS: HEMOGLOBIN A1C 5.6 % (4.8-5.6)
[2018-05-25 03:33] VITALS: BP 148/87
[2018-05-25] MEDS: BUDESONIDE 0.5 MG/2 ML NEBU. NEB SCH (06:05)
[2018-05-25] MEDS: ALBUTEROL SULFATE 2.5 MG/3 ML NEBU. NEB SCH (06:05)
[2018-05-25] MEDS: IBUPROFEN 400 MG TABLET. PO SCH (06:28)
[2018-05-25 07:00] VITALS: BP 147/85
[2018-05-25] MEDS: LACTOBACILLUS RHAMNOSUS GG 1 CAPSULE. PO SCH (08:33)
[2018-05-25] MEDS: CYCLOBENZAPRINE 10 MG TABLET. PO SCH (08:33)
[2018-05-25] MEDS: CETIRIZINE HCL 10 MG TABLET. PO SCH (08:33)
[2018-05-25] MEDS: CITALOPRAM 20 MG TABLET. PO SCH (08:33)
[2018-05-25] MEDS: PANTOPRAZOLE 40 MG TABLET.DR. PO SCH (08:33)
[2018-05-25] MEDS: methylPREDNISolone SOD SUCC PF 40 MG/ML VIAL. IV SCH (08:33)
[2018-05-25] MEDS: amLODIPine BESYLATE 5 MG TABLET PO SCH (08:34)
[2018-05-25] MEDS ORDERED: PRED20TA PO (09:49)
[2018-05-25] MEDS ORDERED: DOXY100C2 PO (09:49)
[2018-05-25] MEDS ORDERED: HYDR-2765 PO (09:49)
[2018-05-25] MEDS ORDERED: ALBU2.5V8 NEB (09:49)
[2018-05-25] MEDS ORDERED: AMLO5TAB10 PO (09:49)
[2018-05-25] MEDS ORDERED: LACT1CAP19 PO (09:49)
[2018-05-25] MEDS ORDERED: CYCL10TA2 PO (09:49)
--- NOTE | 2018-05-25 09:53 | PDOC3 ---
Discharge Summary Date of Admission: May 22, 2018 Date of Discharge: May 25, 2018 Follow-Up: Other ([address] Ennis) Admitting Diagnosis comment: Chest pain FINAL DIAGNOSIS Chest pain- multifactorial non cardiac, COPD Exacerbation, Hyperglycemia 2/2 steroids, Elevated D-dimer- normal V/Q scan, Distended gallbladder, HLD, HTN, Depression Brief Hospital Course DISCHARGE PHYSICAL EXAM GEN: NAD, AOx3 HEENT: MMM, EOMI, no scleral icterus/injection Cardiac: RRR, no M/R/G Lungs: CTAB, regular breathing rate and effort Abd: non distended, NTTP Ext: no erythema/edema LE bilaterally Nuero: CN 2-12 GI Pt is a 62yo CF admitted with chest pain 1)Chest pain- pt has significant workup over the past year for chest pain. Cardiac workup has been normal with several normal stress tests. It was thought pain was related to left shoulder. Pain bringing her in was slightly different than the normal pain she has. Thought to be pleuritic 2/2 COPD exacerbation 2)COPD Exacerbation- pt feeling much better today. Pulmonary was following. Will D/C on doxycycline and prednisone. Pt will need nebulizer ordered when she comes in for hospital follow up visit. 3)Hyperglycemia- 2/2 steroid use. HbA1C 5.6 4)Elevated Ddimer- V/Q scan low risk 5)Distended gallbladder/Ab pain- GI following. Possible PIPIDA scan outpatient. Pt currently without GI symptoms. EGD outpatient 6)HLD- pt continued on Atorvastatin 7)HTN- well controlled, continue Amlodipine 5mg 8)Depression- pt continued on Citalopram 20mg Discharge Medications Current Medications Aspirin (Children'S Aspirin) 324 mg 1X ONCE PO Last administered on 05/21/18at 16:17; Start 05/21/18 at 16:00; Stop 05/21/18 at 16:01; Status DC Sodium Chloride 1,000 ml @ 1,000 mls/hr Q1H IV Last administered on 05/21/18 16:21; Start 05/21/18 at 15:52; Stop 05/21/18 at 16:51; Status DC Ondansetron HCl (Zofran) 4 mg 1X ONCE IV Last administered on 05/21/18 16:18 ; Start 05/21/18 at 16:00; Stop 05/21/18 at 16:01; Status DC Fentanyl Citrate (Fentanyl 2ml Vial) 50 mcg 1X ONCE IV Last administered on at 16:20; Start 05/21/18 at 16:00; Stop 05/21/18 at 16:01; Status DC Iohexol (Omnipaque 300 Mg/ml) 75 ml 1X ONCE IV Last administered on 05/21/18at 16:48; Start 05/21/18 at 16:30; Stop 05/21/18 at 16:31; Status DC Info (CONTRAST GIVEN -- Rx MONITORING) 1 each PRN DAILY PRN MC SEE COMMENTS; Start 05/21/18 at 16:45; Stop 05/23/18 at 16:44; Status DC Fentanyl Citrate (Fentanyl 2ml Vial) 50 mcg 1X ONCE IV Last administered on at 18:46; Start 05/21/18 at 18:15; Stop 05/21/18 at 18:16; Status DC Multi-Ingredient Mouthwash/Gargle (Gi Cocktail) 20 ml 1X ONCE SWSW Last administered on 05/21/18at 21:20; Start 05/21/18 at 18:15; Stop 05/21/18 at 18:17 ; Status DC Ondansetron HCl (Zofran) 4 mg PRN Q8HRS PRN IV NAUSEA/VOMITING Last administered on 05/22/18at 05:15; Start 05/21/18 at 18:15; Stop 05/22/18 at 18:14 ; Status DC Fentanyl Citrate (Fentanyl 2ml Vial) 50 mcg PRN Q1HR PRN IV PAIN Last administered on 05/22/18at 10:59; Start 05/21/18 at 18:15; Stop 05/22/18 at 12:58 ; Status DC Acetaminophen (Tylenol) 650 mg PRN Q4HRS PRN PO FEVER; Start 05/21/18 at 18:15 ; Stop 05/22/18 at 18:14; Status DC Nitroglycerin (Nitrostat) 0.4 mg PRN Q5MIN PRN SL CHEST PAIN; Start 05/21/18 at 18:15; Stop 05/22/18 at 18:14; Status DC Atorvastatin Calcium (Lipitor) 10 mg HS PO Last administered on 05/24/18at 20:49 ; Start 05/22/18 at 21:00 Fluticasone Propionate (Flonase) 2 spray DAILY NS Last administered on at 09:00; Start 05/22/18 at 09:00 Non-Formulary Medication (Budesonide/ Formoterol Fumarate (Symbicort 160-4.5 Mcg Inhaler)) 10.2 gm DAILY IH ; Start 05/22/18 at 09:00; Status UNV Citalopram Hydrobromide (CeleXA) 20 mg DAILY PO Last administered on 05/25/18at 08:33; Start 05/22/18 at 09:00 Cetirizine HCl (ZyrTEC) 10 mg DAILY PO Last administered on 05/25/18at 08:33; Start 05/22/18 at 09:00 Non-Formulary Medication (Melatonin ) 10 mg QHS PO ; Start 05/22/18 at 21:00; Status UNV Albuterol/ Ipratropium (Duoneb) 3 ml RTQID PRN NEB COUGH; Start 05/22/18 at 07: 45; Status UNV Albuterol Sulfate (Ventolin Neb Soln) 2.5 mg RTQID NEB ; Start 05/22/18 at 08:00 ; Status UNV Budesonide (Pulmicort) 0.5 mg RTBID NEB Last administered on 05/25/18at 06:05; Start 05/22/18 at 08:00 Albuterol Sulfate (Ventolin Neb Soln) 2.5 mg RTQID NEB Last administered on at 06:05; Start 05/22/18 at 08:00 Albuterol Sulfate (Ventolin Neb Soln) 2.5 mg PRN Q6HRS PRN NEB SHORTNESS OF BREATH/ COUGH; Start 05/22/18 at 08:00 Acetaminophen/ Hydrocodone Bitart (Lortab 7.5/325) 2 tab PRN Q6HRS PRN PO PAIN SEVERE Last administered on 05/24/18at 16:45; Start 05/22/18 at 13:00 Acetaminophen/ Hydrocodone Bitart (Lortab 7.5/325) 1 tab PRN Q6HRS PRN PO PAIN MODERATE Last administered on 05/22/18at 20:23; Start 05/22/18 at 13:00 Amlodipine Besylate (Norvasc) 5 mg DAILY PO Last administered on 05/25/18 08: 34; Start 05/22/18 at 14:00 Methylprednisolone Sodium Succinate (SOLU-Medrol 40MG VIAL) 40 mg Q12HR IV Last administered on 05/25/18 08:33; Start 05/22/18 at 21:00 Azithromycin (Zithromax) 500 mg 1X ONCE PO ; Start 05/22/18 at 17:45; Stop at 17:46; Status UNV Azithromycin (Zithromax) 250 mg DAILY PO ; Start 05/23/18 at 09:00; Stop at 08:59; Status UNV Multi-Ingredient Mouthwash/Gargle (Gi Cocktail) 20 ml PRN QID PRN PO CHEST PAIN Last administered on 05/24/18 12:17; Start 05/22/18 at 17:45 Ceftriaxone Sodium (Rocephin) 1 gm Q24H IVP Last administered on 05/24/18 17: 56; Start 05/22/18 at 18:00 Lactobacillus Rhamnosus (Culturelle) 1 cap BID PO Last administered on 08:33; Start 05/23/18 at 21:00 Pantoprazole Sodium (Protonix) 40 mg DAILYAC PO Last administered on 05/25/18 08:33; Start 05/23/18 at 11:30 Polyethylene Glycol (miraLAX PACKET) 17 gm PRN BID PRN PO CONSTIPATION Last administered on 05/24/18 10:12; Start 05/23/18 at 10:15 Cyclobenzaprine HCl (Flexeril) 10 mg TID PO Last administered on 05/25/18 08: 33; Start 05/24/18 at 09:00 Ibuprofen (Motrin) 800 mg 1X ONCE PO Last administered on 05/24/18 12:17; Start 05/24/18 at 12:30; Stop 05/24/18 at 12:31; Status DC Ibuprofen (Motrin) 400 mg Q8HRS PO Last administered on 05/25/18 06:28; Start 05/24/18 at 22:00 Active Scripts Active Reported Symbicort 160-4.5 Mcg Inhaler (Budesonide/Formoterol Fumarate) 10.2 Gm Hfa.aer.ad 10.2 Gm IH DAILY Fluticasone Propionate Nasal [place] (Fluticasone Propionate) 16 Gm [place].susp 16 Gm IH DAILY Fexofenadine Hcl 180 Mg Tablet 180 Mg PO DAILY Melatonin 3 Mg Tablet 10 Mg PO QHS Atorvastatin Calcium 10 Mg Tablet 10 Mg PO HS Escitalopram Oxalate 10 Mg Tablet 10 Mg PO DAILY Vital Signs Vital Signs Date Time Temp Pulse Resp B/P (MAP) Pulse Ox O2 Delivery O2 Flow Rate FiO2 05/25/18 08:34 74 148/87 05/25/18 07:00 98.1 19 98 Room Air 98.1 05/24/18 23:22 2.0 Allergies Allergies Coded Allergies Type Severity Reaction Last Updated Verified morphine Adverse Reaction Mild VOMITING 03/26/18 Yes Disposition/Orders: D/C to Home ALHAJI ESCOTO MD May 25, 2018 09:53
[2018-05-25 11:00] VITALS: BP 139/84
[2018-05-25] MEDS: FLUTICASONE 50MCG/NASAL SPRAY 16GM BOTTLE. NS SCH (11:55)
--- NOTE | 2018-05-25 12:30 | NUR ---
Patient discharged to home. Discharge instructions, medications, and follow up appointments discussed with patient. Patient verbalized understanding. Discharge instructions and prescriptions given to patient. IV discontinued. Patient has all belongings with her. Assisted patient out in wheelchair. Daughter here to pecan picker patient.
== END 2018-05-25 12:30 | disposition home or self-care (01) | DRG 871 ==
LOC: ER 15:08 → 2 NORTH 18:00 → 6 SOUTH 05-23 17:43
PROVIDERS: ADMIT Family Medicine; ATTEND Family Medicine
DX: A41.9 Sepsis, unspecified organism (principal); J18.9 Pneumonia, unspecified organism; J44.0 Chronic obstructive pulmonary disease with (acute) lower respiratory infection; J44.1 Chronic obstructive pulmonary disease with (acute) exacerbation; J98.11 Atelectasis; R07.89 Other chest pain; E78.5 Hyperlipidemia, unspecified; F17.201 Nicotine dependence, unspecified, in remission; F32.9 Major depressive disorder, single episode, unspecified; I10 Essential (primary) hypertension; J30.9 Allergic rhinitis, unspecified; K21.9 Gastro-esophageal reflux disease without esophagitis; K58.9 Irritable bowel syndrome, unspecified; K82.8 Other specified diseases of gallbladder; M13.0 Polyarthritis, unspecified; Z60.2 Problems related to living alone; R09.1 Pleurisy; T38.0X5A Adverse effect of glucocorticoids and synthetic analogues, initial encounter; Z80.0 Family history of malignant neoplasm of digestive organs; Z82.49 Family history of ischemic heart disease and other diseases of the circulatory system; Z82.5 Family history of asthma and other chronic lower respiratory diseases; Z83.3 Family history of diabetes mellitus; Z90.49 Acquired absence of other specified parts of digestive tract; Z90.710 Acquired absence of both cervix and uterus; Y92.89 Other specified places as the place of occurrence of the external cause; Z90.722 Acquired absence of ovaries, bilateral; Z71.6 Tobacco abuse counseling
CPT/HCPCS: 36415; 71046; 71250; 74177; 76700; 78582; 80048; 80053; 80061; 80307; 81001; 83036; 83690; 84443; 84484; 85007; 85025; 85379; 87804; 93005; 93306; 94640; 94760; 96361; 96374; 96375; 96376; A9540; A9558; J0696; J2405; J2920; J3010; J7030; J7613; J7626; Q9967; 99285-25

== ENCOUNTER → 2018-06-20 | Outpatient (CLI) | payer OTHER ==
[2018-05-25 11:00] VITALS: BP 139/84
[~2018-06-20] MED LIST changes: +ALBU2.5V8 NEB; +AMLO5TAB10 PO; +BUDE10.2 IH; +CYCL10TA2 PO; +DOXY100C2 PO; +FEXO180T16 PO; +FLUT16SP IH; +HYDR-2765 PO; +LACT1CAP19 PO; +PRED20TA PO
--- NOTE | 2018-06-23 09:23 | RAD ---
DATE: 06/20/2018 EXAM: DIGITAL SCREEN BILAT W/CAD HISTORY: Routine screening COMPARISON: 11/03/2015 This study was interpreted with the benefit of Computerized Aided Detection (CAD). Breast Density: SCATTERED The breast parenchyma shows scattered fibroglandular densities. Breast parenchyma level B. FINDINGS: No new or enlarging breast densities are seen. No suspicious microcalcifications are evident. IMPRESSION: Stable mammograms without evidence of malignancy. BI-RADS CATEGORY: 1 NEGATIVE RECOMMENDED FOLLOW-UP: 12M 12 MONTH FOLLOW-UP PQRS compliance statement: Patient information was entered into a reminder system with a target due date for the next mammogram. Mammography is a sensitive method for finding small breast cancers, but it does not detect them all and is not a substitute for careful clinical examination. A negative mammogram does not negate a clinically suspicious finding and should not result in delay in biopsying a clinically suspicious abnormality. "Our facility is accredited by the [employer] Mammography Program."
== END | disposition home or self-care (01) ==
LOC: MAMMO 10:01
PROVIDERS: ATTEND Family Medicine
DX: R92.2 Inconclusive mammogram (principal)
CPT/HCPCS: 77067

== ENCOUNTER → 2018-07-28 | Outpatient (CLI) | payer OTHER ==
[~2018-07-28] MED LIST changes: +REGADENOSON 0.4 MG/5 ML DISP.SYRIN. IV ONE
--- NOTE | 2018-07-28 11:04 | RAD ---
MR#: [id number] Date of Study: 07/28/2018 Ordering Physician: CONCEPCION ALCANTARA, Referring Physician: HALLIE HAWKINS Tech: RT Carlyn (R) (N) APPROVED REPORT Test Type: Pharmacological Stress Nurse/Tech: Evelyn Medeiros RN Test Indications: dyspnea, cp Cardiac History: Hypertension, former smoker for 20 yrs, COPD, newly dx HD, on anticoagulant Medications: See Electronic Medical Record Medical History: See Electronic Medical Record Resting ECG: NSR (long QT interval on lead I, aVL, No R (just QS) on V1 to Q3, R progression o n V4 to V 6 Resting Heart Rate: 81 bpm Resting Blood Pressure: 125/76mmHg Pretest Chest Pain: No chest pain Nurse/Tech Notes S1S2, wheezing on LLL Consent: The procedure was explained to the patient in lay terms. Informed consent was witnessed. Tomás eout was entered into Reble. History and Stress Test performed by Evelyn Medeiros RN Pharm. Details Pharmacologic stress testing was performed using 0.4mg per 5ml of regadenoson given intravenously ove r 7-10 seconds. Stress Symptoms Dyspnea, Flushing, Nausea (almost vomit), Fatigue, rib and breast pain ( not exactlty chest pain per pt), coughing POST EXERCISE Reason for Termination: Infusion complete Max HR: 113 bpm Max Blood Pressure: 155/84mmHg Chest Pain: Yes. 6/10 more like rib and breast pain per pt Arrhythmia: No. ST Change: no. INTERPRETATION Stress EKG Conclusion: Negative for ischemia. Baseline anteroseptal infarct Imaging Protocol IMAGE PROTOCOL: Rest Tc-99m/stress Tc-99m 1 day Rest: Stress: Viability: Radiopharm.Tc99m SrprckcxqUs48g Sestamibi Ulam83zNm 33mCi Duration 15min. 15min. Img Date 07/28/2018 07/28/2018 Inj-Img Ujhu86nvl. 60min. Rest Admin Site:IV - Right AntecubitalAdministrator:RT Kori (R)(N) Stress Admin Site: IV - Right AntecubitalAdministrator: RHONDA Rodriguez STRESS DATA End Diast. Vol.47.0mlLVEDV index BSA29.0ml End Syst. Vol.9.0mlLVESV index BSA6.0ml Myocardial Mass87.0gEject. Etgewqva25.0% Stress Scores Regional WT1.00Summed WT5.00 Regional WM0.00Summed WM1.00 The rest and stress images show normal perfusion, normal contraction and thickening. LV Perf. Quant 17 Seg. SSS0.00 17 Seg. SRS0.00 17 Seg. SDS0.00 Stress Defect Extent (% LAD)0.00Rest Defect Extent (% LAD)0.00Rev. Defect Extent (% LAD)0.00 Stress Defect Extent (% LCX) 0.00Rest Defect Extent (% LCX)0.00Rev. Defect Extent (% LCX)0.00 Stress Defect Extent (% RCA)0.00Rest Defect Extent (% RCA)0.00Rev. Defect Extent (% RCA)0.00 Stress Defect Extent (% KODI)0.00Rest Defect Extent (% KODI)0.00Rev. Defect Extent (% KODI)0.00 Other Information Quality:Good Risk Assessment: Low Risk Conclusion 1. No evidence of EKG changes with stress testing. 2. Normal perfusion at stress/rest. 3. Low risk study. 4. EF > 60%. Signed by : Robin Mckay, Electronically Approved : 07/28/2018 11:03:36
== END | disposition home or self-care (01) ==
LOC: NM 07:44
PROVIDERS: ATTEND Internal Medicine Cardiovascular Disease
DX: R07.9 Chest pain, unspecified (principal); R06.00 Dyspnea, unspecified; I10 Essential (primary) hypertension; J44.9 Chronic obstructive pulmonary disease, unspecified; Z79.01 Long term (current) use of anticoagulants; Z87.891 Personal history of nicotine dependence
CPT/HCPCS: 78452; 93017; A9500; J2785

== ENCOUNTER → 2018-08-13 | Outpatient (CLI) | payer OTHER ==
[~2018-08-13] MED LIST changes: -REGADENOSON 0.4 MG/5 ML DISP.SYRIN. IV ONE
--- NOTE | 2018-08-13 13:01 | KCIC ---
CHEST PA LATERAL History: Pleuritic chest pain; history of pneumonia Comparison: 05/21/2018 two-view chest x-ray exam. Findings: The cardiomediastinal silhouette is normal. Pulmonary vasculature is normal. The lungs are clear. No pleural effusion or pneumothorax is seen. There is no acute bone abnormality. IMPRESSION: No acute cardiopulmonary process. Electronically signed by: Obinna Millan MD (08/13/2018 12:59 PM) [id number]
== END | disposition home or self-care (01) ==
LOC: KCIC 10:47
PROVIDERS: ATTEND Nurse Practitioner Gerontology
DX: R07.81 Pleurodynia (principal); Z87.01 Personal history of pneumonia (recurrent)
CPT/HCPCS: 71046

== ENCOUNTER → 2018-10-06 | Outpatient (CLI) | payer OTHER ==
--- NOTE | 2018-10-06 16:06 | RAD ---
EXAM: PA and Lateral Views of the Chest DATE: 10/06/2018 12:00 AM INDICATION: COPD COMPARISON: 08/13/2018, 05/21/2018 FINDINGS: The heart is not enlarged. Mediastinal and hilar contours are normal. No focal parenchymal airspace opacity. Mild hyperexpansion, emphysematous change. No pleural effusion or pneumothorax. IMPRESSION: 1. No radiographic evidence for acute cardiopulmonary process. Electronically signed by: Prateek Downing MD (10/06/2018 4:03 PM) [facility]
== END | disposition home or self-care (01) ==
LOC: RAD 10:37
PROVIDERS: ATTEND Family Medicine
DX: J43.9 Emphysema, unspecified (principal)
CPT/HCPCS: 71046

== ENCOUNTER 2019-01-30 07:01 | Outpatient (CLI) | payer OTHER ==
[~2019-01-30] VITALS: Ht 154.9 cm; Wt 66.2 kg
[2019-01-30] VITALS (10 sets, daily range): BP systolic 112–144; BP diastolic 69–84
[~2019-01-30 07:01] MED LIST changes: -MELA3TAB2 PO; +MELA3TAB56 PO
[2019-01-30] MEDS ORDERED: CHOL200027 PO (07:22)
[2019-01-30] MEDS ORDERED: GLYC10.7 IH (07:22)
[2019-01-30] MEDS ORDERED: ALBU2.5V14 NEB (07:22)
[2019-01-30] MEDS ORDERED: MULT-245 PO (07:22)
[2019-01-30] MEDS ORDERED: IPRA0.2S5 IH (07:22)
[2019-01-30] MEDS ORDERED: ACET500T68 PO (07:22)
[2019-01-30] MEDS ORDERED: LIDOCAINE 1% PF 2 ML VIAL. ONE (07:37)
[2019-01-30] MEDS ORDERED: IODIXANOL 320 MG/ML 100 ML VIAL. ONE ×2 (07:38→09:22)
[2019-01-30 07:41] LABS: HEMATOCRIT 39.5 % (36.0-47.0); HEMOGLOBIN 13.3 g/dL (12.0-15.5); RED BLOOD COUNT 4.34 x10^6/uL (3.50-5.40); RED CELL DISTRIBUTION WIDTH 13.4 % (11.5-14.5); WHITE BLOOD COUNT 6.8 x10^3/uL (4.0-11.0)
[2019-01-30 07:55] LABS: CALCIUM 8.7 mg/dL (8.5-10.1); CREATININE 0.8 mg/dL (0.6-1.0); GFR 72.2; POTASSIUM 4.1 mmol/L (3.5-5.1); PROTHROMBIN TIME PATIENT 12.2 SEC (11.7-14.0)
[2019-01-30] MEDS ORDERED: fentaNYL PF VIAL 100 MCG/2 ML VIAL ONE (09:39)
[2019-01-30] MEDS ORDERED: NITROGLYCERIN 200 MCG/2 ML SYRINGE FOR CATH/VASC LAB. ONE (09:40)
[2019-01-30] MEDS ORDERED: MIDAZOLAM HCL/PF 2 MG/2 ML VIAL. ONE (09:40)
[2019-01-30] MEDS ORDERED: HEPARIN for IV BOLUS 10,000 UNIT/10 ML VIAL. ONE (09:40)
[2019-01-30] MEDS ORDERED: VERAPAMIL 5 MG/2 ML VIAL. ONE (09:40)
[2019-01-30] MEDS ORDERED: LIDOCAINE 1% PF 2 ML VIAL. INJ ONE (10:15)
[2019-01-30] MEDS ORDERED: HEPARIN for IV BOLUS 10,000 UNIT/10 ML VIAL. IART ONE (10:15)
[2019-01-30] MEDS ORDERED: IODIXANOL 320 MG/ML 100 ML VIAL. IART ONE (10:15)
[2019-01-30] MEDS ORDERED: fentaNYL PF VIAL 100 MCG/2 ML VIAL IV ONE (10:15)
[2019-01-30] MEDS ORDERED: VERAPAMIL 5 MG/2 ML VIAL. IART ONE (10:15)
[2019-01-30] MEDS ORDERED: MIDAZOLAM HCL/PF 2 MG/2 ML VIAL. IV ONE (10:15)
[2019-01-30] MEDS ORDERED: CONTRAST GIVEN. MC PRN (10:15)
[2019-01-30] MEDS ORDERED: NITROGLYCERIN 200 MCG/2 ML SYRINGE FOR CATH/VASC LAB. IART ONE (10:15)
[2019-01-30] MEDS ORDERED: IV 1/2 NORMAL SALINE 1,000 ML IV SCH (10:18)
--- NOTE | 2019-01-30 10:18 | PDOC ---
MODERATE SEDATION ASSESSMENT RISKS/ALTERNATIVES Risks/Alternatives Risks and alternatives of this type of sedation and procedure discussed with: RISK/ALTERNATIVES: Patient H & P ON CHART H & P H & P on chart and reviewed for co-morbid conditions and appropriate labs. H&P ON CHART: Yes STATUS PREG STATUS ASSESSED: N/A MEDS/ALLERGIES REVIEWED Meds/Allergies Reviewed Medications and Allergies including time and route of recently administered narcotics and sedatives. MEDS/ALLERGIES REVIEWED: Yes ASA RATING ASA RATING: II AIRWAY ASSESSMENT Airway Assessment Airway patency, oral function limitations, presence of caps, crowns, dentures, partials, and ability to extend neck assessed. AIRWAY ASSESSMENT: Yes MALLAMPATI SCORE MALLAMPATI SCORE: II PRE-SEDATION ASSESSMENT PRE-SEDATION ASSESSMENT: Yes CONCEPCION ALCANTARA MD Jan 30, 2019 10:17
[2019-01-30] MEDS ORDERED: 0.9 % SODIUM CHLORIDE 10 ML DISP.SYRIN. IV PRN (10:30)
[2019-01-30] MEDS ORDERED: NITROGLYCERIN SUBLINGUAL 0.4 MG BOTTLE OF 25. SL PRN (10:30)
--- NOTE | 2019-01-30 10:34 | CARD ---
MR#: [id number] Date of Study: 01/30/2019 Ordering Physician: CONCEPCION ANTHONY, Referring Physician: CONCEPCION ANTHONY Tech: Tabatha Ring APPROVED REPORT Technologist: Tabatha Ring Nurse: Angelita Sahni Procedure(s) performed: Left heart catheterization, selective coronary angiography and left ventricul ography via right transradial approach fl time: 5.5 mins dose: 25 gy/cm2 contrast: 103 ml moderate sedation: 25 min INDICATION The indication(s) include : unstable angina . [facility] Clinical Frailty Scale [facility] Clinical Frailty Scale: Mildly Frail Heart Failure Heart Failure: No PROCEDURE NARRATIVE After explaining the risks, benefits and alternative options, informed consent was obtained from vipul ent. Patient was brought to the cardiac [employer] and right wrist was prepped and draped in the usual fashion after confirming a positive modified Tl's test. Arterial access was obtained in the righ t radial artery and a 6 Stateless sheath was inserted. 6 Stateless Neville and 6 Stateless JL 3.5 catheters we re used to perform selective angiography of the right and left coronary arteries. 6 Stateless pigtail c atheter was used to perform left ventriculography. Patient tolerated the procedure well. Hemostasis was achieved using TR band. There were no immediate complications. The following findings were not ed. FINDINGS 1. Hemodynamics: Left ventricular end-diastolic pressure of 25 mmHg. No pullback gradient across th e aortic valve. 2. Left ventriculography: Normal left ventricle systolic function with ejection fraction estimated at 70%. No significant mitral regurgitation seen. 3. Coronary angiography: a. The left main coronary artery arose from the left sinus of Valsalva, gave rise to the left anteri or descending and left circumflex arteries and did not show any significant stenosis. b. The left anterior descending artery did not show any significant stenosis. c. The left circumflex artery did not show any significant stenosis. d. The right coronary artery was a large and dominant vessel arising from the right sinus of Valsalv a that did not show any significant stenosis. Conclusion 1. No significant coronary disease 2. Normal left ventricular systolic function with ejection fraction estimated at 70%. Signed by : Concepcion Anthony, Electronically Approved : 01/30/2019 10:33:34
--- NOTE | 2019-01-30 13:18 | NUR ---
Discharge Note: JULIA MARR Discharge instructions and discharge home medications reviewed with Patient and a copy given. All questions have been answered and understanding verbalized. The following instructions and handouts were given: moderate sedation and transradial arteriogram post care Discontinued lines and drains: Peripheral IV intact. Patient discharged to Home or Self Care withFamily Membervia Wheelchair
== END 2019-01-30 13:20 | disposition home or self-care (01) ==
LOC: CCL 07:01
PROVIDERS: ATTEND Internal Medicine Cardiovascular Disease
DX: I20.0 Unstable angina (principal)
CPT/HCPCS: 36415; 80048; 85027; 85610; 93458; 99152; 99153; C1769; C1892; J1644; J2250; J3010; J3490; Q9967

== ENCOUNTER → 2019-12-16 | Outpatient (CLI) | payer OTHER ==
[2019-01-30 12:25] VITALS: BP 119/84
[~2019-12-16] MED LIST changes: +ACET500T68 PO; +ALBU2.5V14 NEB; +AMLO-186 PO; -AMLO5TAB10 PO; +CHOL200027 PO; +GLYC10.7 IH; +IPRA0.2S5 IH; +MELA3TAB4 PO; -MELA3TAB56 PO; +MULT-245 PO
--- NOTE | 2019-12-17 17:19 | RAD ---
DATE: 12/16/2019 EXAM: DIGITAL SCREEN BILAT W/CAD HISTORY: Screening COMPARISON: 06/20/2018, 11/03/2015 This study was interpreted with the benefit of Computerized Aided Detection (CAD). Breast Density: SCATTERED The breast parenchyma shows scattered fibroglandular densities. Breast parenchyma level B. FINDINGS: No mass, suspicious calcification, or architectural distortion in either breast. IMPRESSION: No evidence of malignancy. BI-RADS CATEGORY: 1 NEGATIVE RECOMMENDED FOLLOW-UP: ADD ADDITIONAL IMAGING PQRS compliance statement: Patient information was entered into a reminder system with a target due date for the next mammogram. Mammography is a sensitive method for finding small breast cancers, but it does not detect them all and is not a substitute for careful clinical examination. A negative mammogram does not negate a clinically suspicious finding and should not result in delay in biopsying a clinically suspicious abnormality. "Our facility is accredited by the [employer] Mammography Program."
== END ==
LOC: MAMMO 13:48
PROVIDERS: ATTEND Family Medicine
DX: Z12.31 Encounter for screening mammogram for malignant neoplasm of breast (principal)
CPT/HCPCS: 77067

== ENCOUNTER → 2020-05-10 | Outpatient (CLI) | payer OTHER ==
[2019-01-30 12:25] VITALS: BP 119/84
[~2020-05-10] MED LIST changes: +IOHEXOL 300 MG/ML 100ML VIAL. IV ONE
--- NOTE | 2020-05-10 09:28 | KCIC ---
Study: CT CHEST WITH CONTRAST - PULMONARY ANGIOGRAM History: Chest pain, shortness of breath Comparison: CT chest 05/22/2018 Technique: Helical CT of the chest performed after the administration of 100 mL Omnipaque 300 intrav enous contrast and timed for angiographic evaluation of the pulmonary arteries per PE protocol. Coron al and sagittal 3D MIP reformations were obtained. One or more of the following individualized dose reduction techniques were utilized for this examinat ion: 1. Automated exposure control 2. Adjustment of the mA and/or kV according to patient size 3. Use of iterative reconstruction technique. Findings: Pulmonary Arteries: Contrast bolus is adequate. No acute pulmonary embolism. Heart/Systemic Vasculature: The heart is normal in size. No pericardial effusion. The thoracic aorta is normal in caliber. No aortic dissection. Mediastinum: No lymphadenopathy. Lungs: Linear subsegmental atelectasis in the left lung base and lingula. No evidence of pneumonia. N o suspicious pulmonary nodule. The airways are clear. No pleural effusion. Neck/Axilla/Body Wall: Thyroid gland is normal. No axillary lymphadenopathy. Breast tissue symmetric. Upper Abdomen: The visualized portion of the upper abdomen is normal. Bones: No acute osseous abnormality. IMPRESSION: No acute pulmonary embolism. Electronically signed by: Quin Bundy MD (05/10/2020 9:26 AM) [id number]
== END ==
LOC: KCIC CT 08:31
PROVIDERS: ATTEND Internal Medicine Critical Care Medicine
DX: I26.99 Other pulmonary embolism without acute cor pulmonale (principal); J98.11 Atelectasis
CPT/HCPCS: 71275; 82565

== ENCOUNTER → 2020-07-29 | Outpatient (CLI) | payer OTHER ==
[2019-01-30 12:25] VITALS: BP 119/84
[~2020-07-29] MED LIST changes: -IOHEXOL 300 MG/ML 100ML VIAL. IV ONE
--- NOTE | 2020-07-29 11:42 | KCIC ---
EXAM: XR CHEST 2V 07/29/2020 9:56 AM CLINICAL INDICATION: Productive cough for one year, shortness of breath, chest and back pain. Bilate ral leg swelling. COMPARISON: Chest radiograph 12/28/[address] chest 05/10/2020 TECHNIQUE: PA and lateral views of the chest FINDINGS: The heart and mediastinum are normal. Lungs are well-expanded. No consolidation, pleural effusion, or pneumothorax. No acute osseous abnormality. IMPRESSION: No acute cardiopulmonary abnormality. Electronically signed by: Quin Bundy MD (07/29/2020 11:40 AM) [id number]
== END ==
LOC: KCIC 09:52
PROVIDERS: ATTEND Family Medicine
DX: R05 Cough (principal)
CPT/HCPCS: 71046

== ENCOUNTER → 2020-08-01 | Outpatient (CLI) | payer OTHER ==
[2019-01-30 12:25] VITALS: BP 119/84
[~2020-08-01] MED LIST changes: +REGADENOSON 0.4 MG/5 ML DISP.SYRIN. IV ONE
--- NOTE | 2020-08-01 08:52 | CARD ---
MR#: [id number] Date of Study: 08/01/2020 Ordering Physician: CONCEPCION ALCANTARA, Referring Physician: CONCEPCION ALCANTARA Tech: Beena Greene [facility] APPROVED REPORT EXAM: Two-dimensional and M-mode echocardiogram with Doppler and color Doppler. Other Information Quality : AverageHR: 78bpm Rhythm : NSR INDICATION Dyspnea 2D DIMENSIONS RVDd3.5 (2.9-3.5cm)Left Atrium(2D)3.5 (1.6-4.0cm) IVSd1.0 (0.7-1.1cm)Aortic Root(2D)3.1 (2.0-3.7cm) LVDd3.9 (3.9-5.9cm)LVOT Diameter2.2 (1.8-2.4cm) PWd1.0 (0.7-1.1cm)LVDs2.2 (2.5-4.0cm) FS (%) 44.4 %SV51.1 ml LVEF(%)76.3 (>50%) Aortic Valve AoV Peak Lionel.126.7cm/sAoV VTI23.7cm AO Peak GR.6.4mmHgLVOT Peak Lionel.107.7cm/s AO Mean GR.2mmHgAVA (VMAX)3.21cm2 Mitral Valve MV E Ehsuvomn07.6cm/sMV DECEL [id number] MV A Bgaphqdb799.5cm/sE/A Ratio0.7 Pulmonary Valve PV Peak Nxvfzyia168.7cm/s Tricuspid Valve TR P. Wkkmzczu322di/sTR Peak Gr.28mmHg Pulmonary Vein S1 Vuqbaony52.6cm/sD2 Mbnqwxko09.7cm/s PVa [id number] LEFT VENTRICLE The left ventricle is normal size. There is normal left ventricular wall thickness. The left ventricu lar systolic function is normal. Estimated ejection fraction 60-65%. There is normal LV segmental wa ll motion. Transmitral Doppler flow pattern is Grade I-abnormal relaxation pattern. RIGHT VENTRICLE The right ventricle is normal size. There is normal right ventricular wall thickness. The right ventr icular systolic function is normal. ATRIA The left atrium size is normal. The right atrium size is normal. The interatrial septum is intact wit h no evidence for an atrial septal defect or patent foramen ovale as noted on 2-D or Doppler imaging. AORTIC VALVE The aortic valve is normal in structure and function. Doppler and Color Flow revealed no significant aortic regurgitation. There is no significant aortic valvular stenosis. MITRAL VALVE The mitral valve is normal in structure and function. There is no evidence of mitral valve prolapse. There is no mitral valve stenosis. Doppler and Color-flow revealed trace mitral regurgitation. TRICUSPID VALVE The tricuspid valve is normal in structure and function. Doppler and Color Flow revealed trace tricus pid regurgitation. Estimated PAP 32 mmHg. There is no tricuspid valve stenosis. PULMONIC VALVE The pulmonary valve is normal in structure and function. Doppler and Color Flow revealed trace pulmon ic valvular regurgitation. GREAT VESSELS The aortic root is normal in size. The ascending aorta is normal in size. The IVC is normal in size a nd collapses >50% with inspiration. PERICARDIAL EFFUSION There is no evidence of significant pericardial effusion. Critical Notification Critical Value: No <Conclusion> The left ventricular systolic function is normal. Estimated ejection fraction 60-65%. There is normal LV segmental wall motion. Transmitral Doppler flow pattern is Grade I-abnormal relaxation pattern. Trace mitral regurgitation. Trace tricuspid regurgitation. Estimated PAP 32 mmHg. There is no evidence of significant pericardial effusion. Signed by : Concepcion Alcantara, Electronically Approved : 08/01/2020 08:51:31
--- NOTE | 2020-08-01 12:40 | RAD ---
MR#: [id number] Date of Study: 08/01/2020 Ordering Physician: CONCEPCION ALCANTARA, Referring Physician: HALLIE HAWKINS Tech: RT Kori (Golden) (N) APPROVED REPORT Test Type: Pharmacological Stress Nurse/Tech: Ashlee Kerr RN Test Indications: Chest Pain Cardiac History: HTN, See EMR. Medications: See EMR. Medical History: X-Smoker, See EMR. Resting ECG: SR Resting Heart Rate: 75 bpm Resting Blood Pressure: 99/68mmHg Pretest Chest Pain: Pt states "No" Nurse/Tech Notes Lungs with crackles throughout, heart tones regular. Consent: The procedure was explained to the patient in lay terms. Informed consent was witnessed. Tomás eout was entered into [employer]. History and Stress Test performed by RT Kori (R) (N) Pharm. Details Pharmacologic stress testing was performed using 0.4mg per 5ml of regadenoson given intravenously ove r 7-10 seconds. Stress Symptoms Pt c/o chest pressure/tightness starting in stage R @ 00:55. Pt. rates pressure @ 9/10. Pt describe s it as "something is sitting on my chest". At 02:55 in stage R, Pt explaines the pressure is down t o 8/10. By the end of the stress test Pt states the pressure in down to 6/10. Pt has no other cardiac symptoms. INSURANCE SOLICITOR Lo Moser was notified @ 11:00. Ms. Javed will continue to be monitored until second set of images; and if chest pressure has not resolved or decreased to baseline by then; Lo Nair INSURANCE SOLICITOR will be notified. Pt is currently eating and states presure is down to 5/10. Pt also explains that she always has this chest pressure at a 3/10; but it was "greatly increased by this test". Pt f inished eating at 11:13 and states that the pressure is down to 4/10. Will continue to monitor pt. POST EXERCISE Max HR: 100 bpm Max Blood Pressure: 147/79mmHg Blood Pressure response to exercise: Normal blood pressure response during stress. Heart Rate response to exercise: WNL Chest Pain: Yes. See Stress symptoms Arrhythmia: No. ST Change: No. No changes from baseline EKG. INTERPRETATION Stress EKG Conclusion: Baseline EKG showed sinus rhythm. No ischemic changes at peak stress. No arr hythmias. Imaging Protocol IMAGE PROTOCOL: Rest Tc-99m/stress Tc-99m 1 day Rest: Stress: Viability: Radiopharm.Tc99m RsmiouvvoZf83g Sestamibi Dose10.4mCi 31.7mCi Duration 13min. 13min. Img Date 08/01/2020 08/01/2020 Inj-Img Rxvl00jtn. 60min. Rest Admin Site:IV - Right AntecubitalAdministrator:RT Kori (R)(N) Stress Admin Site: IV - Right AntecubitalAdministrator: RT Kori (R)(N) STRESS DATA End Diast. Vol.66.0mlLVEDV index BSA39.0ml End Syst. Vol.13.0mlLVESV index BSA8.0ml Myocardial Eery729.0gEject. Ladqhmpz53.0% Stress Scores Regional WT0.00Summed WT2.00 Regional WM0.00Summed WM0.00 Study quality was good. Left Ventricular size was Normal at Rest and Stress. Lung uptake was . Left Ventricular ejection fraction is 79%. The rest and stress images show normal perfusion, normal contraction and thickening. LV Perf. Quant 17 Seg. SSS0.00 17 Seg. SRS0.00 17 Seg. SDS0.00 Stress Defect Extent (% LAD)0.00Rest Defect Extent (% LAD)0.00Rev. Defect Extent (% LAD)0.00 Stress Defect Extent (% LCX) 0.00Rest Defect Extent (% LCX)0.00Rev. Defect Extent (% LCX)0.00 Stress Defect Extent (% RCA)0.00Rest Defect Extent (% RCA)0.00Rev. Defect Extent (% RCA)0.00 Stress Defect Extent (% KODI)0.00Rest Defect Extent (% KODI)0.00Rev. Defect Extent (% KODI)0.00 Conclusion 1. Regadenoson cardioisotope stress test did not show any evidence of ischemia or infarct. 2. Normal left ventricular systolic function with ejection fraction calculated at 79%. 3. Low risk for cardiac events. Signed by : Concepcion Alcantara, Electronically Approved : 08/01/2020 12:39:40
== END ==
LOC: ECHO 07:24
PROVIDERS: ATTEND Internal Medicine Cardiovascular Disease
DX: I10 Essential (primary) hypertension (principal); Z87.891 Personal history of nicotine dependence
CPT/HCPCS: 78452; 93017; 93306; A9500; J2785

== ENCOUNTER 2021-01-02 17:21 | Emergency (ER) | payer MEDICARE, OTHER ==
[~2021-01-02] VITALS: Ht 157.5 cm; Wt 68.1 kg
[~2021-01-02 17:21] MED LIST changes: +CYCL10TA19 PO; -CYCL10TA2 PO; -DOXY100C2 PO; +DOXY100C3 PO; -REGADENOSON 0.4 MG/5 ML DISP.SYRIN. IV ONE
[2021-01-02] MEDS ORDERED: IBUPROFEN 200 MG TABLET. PO ONE (20:15)
[2021-01-02] MEDS ORDERED: ACETAMINOPHEN 500 MG TABLET PO ONE (20:15)
--- NOTE | 2021-01-02 20:26 | PHYS DOC ---
Past Medical History Past Medical History: Arthritis, Endometriosis Additional Past Medical Histor: ENDOMETRIOSIS (AKHIL SMILEY APRN) Past Surgical History: Appendectomy, Hysterectomy, Tonsillectomy Additional Past Surgical Histo: ENDOMETRIOSIS SX x4 (AKHIL SMILEY APRN) Smoking Status: Former Smoker Alcohol Use: None Drug Use: None (AKHIL SMILEY APRN) General Adult EDM: Chief Complaint: KNEE INJURY HPI: HPI: 65-year-old female who presents to the emergency department complaining of bilateral knee pain bilateral hip pain right shoulder pain right elbow pain after falling out of bed at approximately 430 this morning. Patient reports her bed is approximately 2 feet off the ground, she fell out of bed and landed on her knees and elbows. Patient reports taking Tylenol at 9:00 this morning without relief. Has not used ice packs or other nonpharmacological pain relief methods reports a 10 out of 10 pain, has not taken any further pain medications cxfq-tjo-nptnrog or prescription since 9 AM. Reports a allergy to morphine sulfate, reports taken blood pressure medication, cholesterol medication, depression medication, and CBD oil for chronic aches and pains. Patient denies loss of consciousness, denies other physical complaints or physical concerns. (AKHIL SMILEY APRN) Review of Systems: Review of Systems: 14 body systems of review of systems have been reviewed. See HPI for pertinent positives and negative responses, otherwise all other systems are negative, nonpertinent or noncontributory. Constitutional: Negative except as outlined in HPI above. Skin: Negative except as outlined in HPI above. Eyes: Negative except as outlined in HPI above. HENT: Negative except as outlined in HPI above. Respiratory: Negative except as outlined in HPI above. Cardiovascular: Negative except as outlined in HPI above. GI: Negative except as outlined in HPI above. : Negative except as outlined in HPI above. Musculoskeletal: Negative except as outlined in HPI above. Integument: Negative except as outlined in HPI above. Neurologic: Negative except as outlined in HPI above. Endocrine: Negative except as outlined in HPI above. Lymphatic: Negative except as outlined in HPI above. Psychiatric: Negative except as outlined in HPI above. (AKHIL SMILEY APRN) Heart Score: C/O Chest Pain: No Risk Factors: Risk Factors: DM, Current or recent (<one month) smoker, HTN, HLP, family history of CAD, obesity. Risk Scores: Score 0 - 3: 2.5% MACE over next 6 weeks - Discharge Home Score 4 - 6: 20.3% MACE over next 6 weeks - Admit for Clinical Observation Score 7 - 10: 72.7% MACE over next 6 weeks - Early Invasive Strategies (AKHIL SMILEY APRN) Current Medications: Current Medications Medications (Trade) Dose Ordered Sig/Jonatan Start Time Stop Time Status Last Admin Dose Admin Acetaminophen (Tylenol) 1,000 mg 1X ONCE 01/02/21 20:15 01/02/21 20:16 Ibuprofen (Motrin) 600 mg 1X ONCE 01/02/21 20:15 01/02/21 20:16 (AKHIL SMILEY APRN) Allergies: Allergies: Allergies Coded Allergies Type Severity Reaction Last Updated Verified morphine Adverse Reaction Mild VOMITING 03/26/18 Yes (AKHIL SMILEY APRN) Physical Exam: PE: Constitutional: Well developed, well nourished, no acute distress, non-toxic appearance. 65-year-old female in no apparent distress. HENT: Normocephalic, atraumatic. Eyes: Conjunctiva normal, no discharge. Neck: Normal range of motion, no stridor. Cardiovascular: No cyanosis appreciated, distal cap refill less than 2 seconds. Lungs & Thorax: Patient is in no respiratory distress, no audible adventitious lung sounds appreciated. Abdomen: Nontender, no abnormalities noted. Skin: Warm, dry, no erythema, no rash. Back: No tenderness, no deformities. Extremities: No tenderness, no cyanosis, no clubbing, ROM intact, no edema. Contusion bilateral knees, limited passive range of motion related to pain of bilateral knees, bilateral hips, distal cap refill less than 2 seconds, 2+ pedal pulses, contusion to right elbow, limited range of motion of elbow and shoulder joint related to pain, distal cap refill less than 2 seconds, 2+ radial pulse. No deformities, no crepitus appreciated. Skin is intact. No abrasions appreciated. Neurologic: Alert and oriented X 3, normal motor function, normal sensory function, no focal deficits noted. Psychologic: Affect normal, judgement normal, mood normal. (AKHIL SMILEY APRN) EKG: EKG: [] (AKHIL SMILEY APRN) Radiology/Procedures: Radiology/Procedures: PROCEDURE: HIP BILATERAL WITH PELVIS Study: XR HIP (WITH OR WITHOUT PELVIS) 1 VIEW Indication: Fall. Pain. Comparison: None recently. Findings: No acute fracture identified at either hip. Alignment is within normal limits and joint space height is maintained. Small benign-appearing lucent focus in the right ischium. Within normal limits pubic symphysis. Grossly intact obturator rings. The partially assessed sacrum is intact. Pelvic phleboliths. There appears to be suture chain projecting over the right hemipelvis. Osteopenia. Impression: No radiographic evidence for an acute fracture. Osteopenia. Electronically signed by: JAN CORONA MD (01/02/2021 9:38 PM) [facility] PROCEDURE: SHOULDER 2+V RIGHT Study: XR SHOULDER_RIGHT 2+ VIEWS Indication: Fall. Pain. Comparison: None. Findings: No traumatic malalignment across the acromioclavicular or glenohumeral joints. Mild arthrosis at the AC joint. No displaced fracture. The acromiohumeral interval is within normal limits. The partially assessed right ribs are grossly intact. The bones appear osteopenic. Partially imaged cervical facet arthrosis. Impression: No acute fracture or traumatic malalignment appreciated at the right shoulder girdle. Electronically signed by: JAN CORONA MD (01/02/2021 9:36 PM) [facility] PROCEDURE: KNEE BILAT 4V Study: XR KNEE 4 VIEWS WITH PATELLA Indication: Fall. Pain. Comparison: 11/14/2020 Findings: No acute fracture or malalignment. No significant femorotibial compartment joint space height loss. Minimal patellar osteophyte formation. No knee joint effusion. Osteopenia. Impression: No acute osseous abnormality. Osteopenia. Electronically signed by: JAN CORONA MD (01/02/2021 9:38 PM) [facility] PROCEDURE: ELBOW RIGHT 3V Study: XR ELBOW COMPLETE_RIGHT 3+ VIEWS Indication: Fall. Pain. Comparison: None. Findings: Incomplete assessment for malalignment at the elbow or elbow joint effusion due to obliquity on the lateral view. Mineralization/ossification adjacent to the lateral epicondyle appears chronic. No discrete fracture of the radial head on the AP view. Ulnotrochlear and radiocapitellar alignment on the AP view is within normal limits. Impression: No displaced fracture is identified or traumatic malalignment however the study is limited by patient obliquity on the lateral view. Chronic mineralization/ossification adjacent to the lateral humeral epicondyle. If there is ongoing concern consider follow-up radiographs when the patient can be properly positioned. Electronically signed by: JAN CORONA MD (01/02/2021 9:35 PM) [facility] (AKHIL SMILEY APRN) Course & Med Decision Making: Course & Med Decision Making Pertinent Labs and Imaging studies reviewed. (See chart for details) 65-year-old female, vital signs reviewed, presents emergency department reporting falling out of bed at 430 this morning. Physical examination and presentation consistent with patient's explanation of events. Will order x-rays of sore areas to rule out bony injury however most likely contusions, will order Tylenol and Motrin p.o. for pain, ice packs to sore areas. Dr. Covarrubias and myself wet read x-ray negative for acute fracture, official radiologic interpretation by house radiology pending at this time. Will review with patient x-ray findings, formulate discharge instructions pending negative x-ray from radiology interpretation, Dr. Covarrubias will review interpretation and adjust any discharge instructions prior to patient's discharge from the emergency department. End of shift report given to ED attending physician Dr. Covarrubias. (AKHIL SMILEY APRN) Course & Med Decision Making I was the Attending physician on the above date of service of this patient. This patient was evaluated, examined, treated, and dispositioned from the emergency department by the mid-level practitioner. Although I was working at the time , no assistance was requested. Electronically signed, Evonne Covarrubias DO (EVONNE COVARRUBIAS DO) Dayan Disclaimer: Dayan Disclaimer: This electronic medical record was generated, in whole or in part, using a voice recognition dictation system. (AKHIL SMILEY APRN) Departure Departure Impression: Primary Impression: Multiple contusions Disposition: 01 HOME / SELF CARE / HOMELESS Condition: GOOD Referrals: MAREK ORR D.O. (PCP) Patient Instructions: Contusion Additional Instructions: You were seen today in the emergency department after falling out of bed and landing on your knees and elbows. X-rays of your knees, hips, right elbow and right shoulder were performed in the emergency department today, these did not show any concerning findings for fracture or broken bones. As we discussed, RICE therapy is in acronym for rest, ice, compression, elevation. Willis wraps were placed on your sore joints today in the emergency department. Please use ice packs 30 minutes on and 30 minutes off while awake for the next 48 to 72 hours. You may use ihsj-sqo-rmtcjoa Tylenol and/or Motrin for ongoing aches and pains. Please follow-up with your primary care physician soon for reevaluation of your aches and pains and ongoing pain management. Return to the emergency department for worsening symptoms or other concerns. Thank you for visiting our Emergency Department. It was a pleasure taking care of you today in the emergency department and we appreciate you trusting us with your care. If any additional problems come up don't hesitate to return to visit us. Please follow up with your primary care provider so they can plan additional care if needed and know about the problem that you had. If symptoms worsen come back to the Emergency Department. Any concerning symptoms that start such as chest pain, shortness of air, weakness or numbness on one side of the body, running high fevers or any other concerning symptoms return to the ER. EMERGENCY DEPARTMENT GENERAL DISCHARGE INSTRUCTIONS Thank you for coming to [facility] Emergency Department (ED) today and trusting us with you care. We trust that you had a positive experience in our Emergency Department. If you wish to speak to the department management, you may call the Director at [phone]. YOUR FOLLOW UP INSTRUCTIONS ARE FOLLOWS: 1. Do you have a private Doctor? If you do not have a private doctor, please ask for a resource list of physicians or clinics that may be able to assist you with foll ow up care. 2. The Emergency Physicain has interpreted your x-rays. The X-Ray specialist will also review them. If there is a change in the findings, you will be notified in 48 hours when at all possible. 3. A lab test or culture has been done, your results will be reviewed and you will be notified if you need a change in treatment. ADDITIONAL INSTRUCTIONS AND INFORMATION: 1. Your care today has been supervised by a physician who is specially trained in emergency care. Many problems require more than one evaluation for a complete diagnosis and treatment. We recommend that you schedule your follow up appointment as re commended to ensure complete treatment of you illness or injury. If you are unable to obtain follow up care and continue to have a problem, or if your condition worsens, we recommend that you return to the ED. 2. We are not able to safely determine your condition over the phone nor are we able to give sound medical advice over the phone. For these safety reasons, if you call for medical advice we will ask you to come to the ED for further evaluation. 3. If you have any questions regarding these discharge instructions please call the ED at [phone]. SAFETY INFORMATION: In the interest of safety, wellness, and injury prevention; we encourage you to wear your sealbelt, if you smoke; quite smoking, and we encourage family to use a protective helmet for bicycling and other sporting events that present an increased risk for head injury. IF YOUR SYMPTOMS WORSEN OR NEW SYMPTOMS DEVELOP, OR YOU HAVE CONCERNS ABOUT YOUR CONDITION; OR IF YOUR CONDITION WORSENS WHILE YOU ARE WAITING FOR YOUR FOLLOW UP APPOINTMENT; EITHER CONTACT YOUR PRIMARY CARE DOCTOR, THE PHYSICIAN WHOSE NAME AND NUMBER YOU WERE GIVEN, OR RETURN TO THE ED IMMEDIATELY. AKHIL SMILEY APRN Jan 02, 2021 20:26 EVONNE COVARRUBIAS DO Jan 07, 2021 06:11
--- NOTE | 2021-01-02 21:38 | RAD ---
Study: XR ELBOW COMPLETE_RIGHT 3+ VIEWS Indication: Fall. Pain. Comparison: None. Findings: Incomplete assessment for malalignment at the elbow or elbow joint effusion due to obliquity on the l ateral view. Mineralization/ossification adjacent to the lateral epicondyle appears chronic. No discr ete fracture of the radial head on the AP view. Ulnotrochlear and radiocapitellar alignment on the AP view is within normal limits. Impression: No displaced fracture is identified or traumatic malalignment however the study is limited by patient obliquity on the lateral view. Chronic mineralization/ossification adjacent to the lateral humeral e picondyle. If there is ongoing concern consider follow-up radiographs when the patient can be properl y positioned. Electronically signed by: JAN CORONA MD (01/02/2021 9:35 PM) [facility]
--- NOTE | 2021-01-02 21:39 | RAD ---
Study: XR SHOULDER_RIGHT 2+ VIEWS Indication: Fall. Pain. Comparison: None. Findings: No traumatic malalignment across the acromioclavicular or glenohumeral joints. Mild arthrosis at the AC joint. No displaced fracture. The acromiohumeral interval is within normal limits. The partially a ssessed right ribs are grossly intact. The bones appear osteopenic. Partially imaged cervical facet a rthrosis. Impression: No acute fracture or traumatic malalignment appreciated at the right shoulder girdle. Electronically signed by: JAN CORONA MD (01/02/2021 9:36 PM) [facility]
--- NOTE | 2021-01-02 21:40 | RAD ---
Study: XR HIP (WITH OR WITHOUT PELVIS) 1 VIEW Indication: Fall. Pain. Comparison: None recently. Findings: No acute fracture identified at either hip. Alignment is within normal limits and joint space height is maintained. Small benign-appearing lucent focus in the right ischium. Within normal limits pubic s ymphysis. Grossly intact obturator rings. The partially assessed sacrum is intact. Pelvic phleboliths. There appears to be suture chain projecting over the right hemipelvis. Osteopenia . Impression: No radiographic evidence for an acute fracture. Osteopenia. Electronically signed by: JAN CORONA MD (01/02/2021 9:38 PM) [facility]
--- NOTE | 2021-01-02 21:41 | RAD ---
Study: XR KNEE 4 VIEWS WITH PATELLA Indication: Fall. Pain. Comparison: 11/14/2020 Findings: No acute fracture or malalignment. No significant femorotibial compartment joint space height loss. M inimal patellar osteophyte formation. No knee joint effusion. Osteopenia. Impression: No acute osseous abnormality. Osteopenia. Electronically signed by: JAN CORONA MD (01/02/2021 9:38 PM) [facility]
[2021-01-02 22:01] VITALS: BP 131/78
== END 2021-01-02 22:01 | disposition home or self-care (01) ==
LOC: ER 17:21
DX: S80.02XA Contusion of left knee, initial encounter (principal); S80.01XA Contusion of right knee, initial encounter; S70.02XA Contusion of left hip, initial encounter; S70.01XA Contusion of right hip, initial encounter; S50.01XA Contusion of right elbow, initial encounter; Z87.891 Personal history of nicotine dependence; Z88.5 Allergy status to narcotic agent; W06.XXXA Fall from bed, initial encounter; Y93.89 Activity, other specified; Y92.89 Other specified places as the place of occurrence of the external cause; Y99.8 Other external cause status
CPT/HCPCS: 73030; 73080; 73521; 99284; 73564-50